=== PATIENT | female | born 1945 | race African-American/Black ===

== ENCOUNTER → 2022-03-25 | Day surgery (SDC) | payer OTHER ==
[2022-03-23 10:19] LABS: Basophils # (auto) 0 10 ^3/uL (0-0.2); Basophils % (auto) 0.8 % (0.0-2.0); Eosinophils # (auto) 0.2 10 ^3/uL (0-0.8); Eosinophils % (auto) 3.8 % (0.0-7.0); Hematocrit 41.3 % (36.0-46.0); Hemoglobin 13.6 g/dL (12.2-16.2); Lymphocytes # (auto) 1.9 10 ^3/uL (0.4-5.4); Lymphocytes % (auto) 30.8 % (10.0-50.0); Mean Corpuscular Hemoglobin 29.7 pg (28.0-32.0); Mean Corpuscular Volume 90.1 fL (80.0-100.0); Monocytes # (auto) 0.3 10 ^3/uL (0-1.3); Neutrophils # (auto) 3.7 10 ^3/uL (1.6-8.6); Neutrophils % (auto) 59.6 % (37.0-80.0); Nucleated Red Blood Cells % 0.2 %; Red Blood Cells 4.58 10^6/uL (4.0-5.20); Red Cell Distribution Width 13.4 % (11.8-14.3); White Blood Cell 6.2 10^3/uL (4.4-10.8)
[2022-03-23 10:42] LABS: INR 0.97 (0.9-1.15); Partial Thromboplastin Time 26.1 sec (24.6-33.4)
[2022-03-23 10:51] LABS: Calcium 9.2 mg/dL (8.5-10.1); Potassium 4.2 mmol/L (3.5-5.1)
[2022-03-23 10:54] LABS: BUN/Creatinine Ratio 11.5; Bilirubin, Total 0.3 mg/dL (0.2-1.0); Total Protein 7.6 g/dL (6.4-8.2)
[~2022-03-25] VITALS: Ht 154.9 cm; Wt 59.9 kg
[2022-03-25 16:40] VITALS: BP 147/76
== END | disposition home or self-care (01) ==
LOC: GI 13:42
PROVIDERS: ATTEND Internal Medicine Gastroenterology
DX: Z01.812 Encounter for preprocedural laboratory examination (principal); K21.9 Gastro-esophageal reflux disease without esophagitis; R10.13 Epigastric pain; K44.9 Diaphragmatic hernia without obstruction or gangrene; K29.50 Unspecified chronic gastritis without bleeding; Z20.822 Contact with and (suspected) exposure to COVID-19
CPT/HCPCS: 36415; 43239; 80053; 85025; 85610; 85730; U0003

== ENCOUNTER → 2022-04-10 | Day surgery (SDC) | payer OTHER ==
[2022-04-09 09:30] LABS: Basophils # (auto) 0.1 10 ^3/uL (0-0.2); Basophils % (auto) 0.9 % (0.0-2.0); Eosinophils # (auto) 0.2 10 ^3/uL (0-0.8); Eosinophils % (auto) 2.6 % (0.0-7.0); Hematocrit 41.5 % (36.0-46.0); Hemoglobin 14.3 g/dL (12.2-16.2); Lymphocytes % (auto) 27.3 % (10.0-50.0); Mean Corpuscular Hgb Conc. 34.5 g/dL (32.0-36.0); Mean Corpuscular Volume 89.8 fL (80.0-100.0); Monocytes # (auto) 0.3 10 ^3/uL (0-1.3); Monocytes % (auto) 4.3 % (0.0-12.0); Neutrophils # (auto) 4.8 10 ^3/uL (1.6-8.6); Neutrophils % (auto) 64.9 % (37.0-80.0); Red Blood Cells 4.63 10^6/uL (4.0-5.20); White Blood Cell 7.4 10^3/uL (4.4-10.8)
[2022-04-09 10:03] LABS: INR 0.97 (0.9-1.15); Partial Thromboplastin Time 27.1 sec (24.6-33.4)
[2022-04-09 10:29] LABS: Albumin 3.9 g/dL (3.4-5.0); Calcium 9.5 mg/dL (8.5-10.1); Potassium 4.1 mmol/L (3.5-5.1)
[2022-04-09 10:35] LABS: BUN/Creatinine Ratio 16.5; Bilirubin, Total 0.8 mg/dL (0.2-1.0); Total Protein 7.9 g/dL (6.4-8.2)
[~2022-04-10] VITALS: Ht 154.9 cm; Wt 59.0 kg
[~2022-04-10] MED LIST: FLUT110A IN; GABA300C10 PO; LOSA100T25 PO; METO25TA93 PO; MIDAZOLAM HCL 2MG/2ML 2ml VIAL (1mg/ml) ONE; OMEP20TA PO; POTA10TA51 PO; ROPI0.254 PO; SIMV-8 PO
[2022-04-10] MEDS: diphenhdrAMINE HCL 50 MG/1 ML VL ONE ×2 (18:22→18:24)
[2022-04-10] MEDS: MIDAZOLAM HCL 2MG/2ML 2ml VIAL (1mg/ml) ONE ×3 (18:22→18:29)
[2022-04-10] MEDS: fentaNYL CITRATE 100 MCG/2 ML VL ONE ×3 (18:22→18:29)
[2022-04-10 19:15] VITALS: BP 123/74
== END | disposition home or self-care (01) ==
LOC: GI 12:19
PROVIDERS: ATTEND Internal Medicine Gastroenterology
DX: R19.4 Change in bowel habit (principal); K57.30 Diverticulosis of large intestine without perforation or abscess without bleeding; K64.8 Other hemorrhoids; K63.89 Other specified diseases of intestine; I10 Essential (primary) hypertension; K21.9 Gastro-esophageal reflux disease without esophagitis; E78.5 Hyperlipidemia, unspecified; J45.909 Unspecified asthma, uncomplicated; M19.90 Unspecified osteoarthritis, unspecified site; I49.9 Cardiac arrhythmia, unspecified; Z88.6 Allergy status to analgesic agent; Z88.2 Allergy status to sulfonamides; Z88.8 Allergy status to other drugs, medicaments and biological substances; Z98.890 Other specified postprocedural states; Z79.899 Other long term (current) drug therapy; Z90.710 Acquired absence of both cervix and uterus; Z20.822 Contact with and (suspected) exposure to COVID-19
CPT/HCPCS: 36415; 45380; 80053; 85025; 85610; 85730; 88305; J1200; J2250; J3010; U0003

== ENCOUNTER → 2022-09-23 | Outpatient (CLI) | payer OTHER ==
[~2022-09-23] MED LIST changes: +GABA-1250 PO; -GABA300C10 PO; -MIDAZOLAM HCL 2MG/2ML 2ml VIAL (1mg/ml) ONE; -SIMV-8 PO; +SIMV20TA20 PO
[2022-09-23 08:34] LABS: Basophils # (auto) 0 10 ^3/uL (0-0.2); Basophils % (auto) 0.7 % (0.0-2.0); Eosinophils # (auto) 0.2 10 ^3/uL (0-0.8); Eosinophils % (auto) 2.6 % (0.0-7.0); Hematocrit 38.3 % (36.0-46.0); Hemoglobin 12.9 g/dL (12.2-16.2); Lymphocytes # (auto) 1.7 10 ^3/uL (0.4-5.4); Lymphocytes % (auto) 25.2 % (10.0-50.0); Mean Corpuscular Hemoglobin 30.7 pg (28.0-32.0); Mean Corpuscular Hgb Conc. 33.6 g/dL (32.0-36.0); Mean Corpuscular Volume 91.2 fL (80.0-100.0); Monocytes # (auto) 0.3 10 ^3/uL (0-1.3); Monocytes % (auto) 4.1 % (0.0-12.0); Neutrophils # (auto) 4.5 10 ^3/uL (1.6-8.6); Neutrophils % (auto) 67.4 % (37.0-80.0); Nucleated Red Blood Cells % 0.1 %; Red Cell Distribution Width 12.9 % (11.8-14.3); White Blood Cell 6.7 10^3/uL (4.4-10.8)
[2022-09-23 09:12] LABS: Urine Bacteria FEW /hpf (None Seen); Urine Blood 1+ /uL (Negative); Urine Budding Yeast MODERATE /hpf (None Seen); Urine Mucus FEW (None Seen); Urine Specific Gravity 1.019 (1.001-1.035); Urine WBC 452 /hpf (0 - 5); Urine WBC Clumps PRESENT /hpf (None Seen)
[2022-09-23 09:20] LABS: Albumin 3.5 g/dL (3.4-5.0); Calcium 9.3 mg/dL (8.5-10.1); Potassium 3.8 mmol/L (3.5-5.1)
[2022-09-23 09:26] LABS: BUN/Creatinine Ratio 20.2 (10.0-20.0); Bilirubin, Total 0.5 mg/dL (0.2-1.0); Total Protein 7.2 g/dL (6.4-8.2)
== END | disposition home or self-care (01) ==
LOC: LAB 08:13
PROVIDERS: ATTEND Internal Medicine
DX: I10 Essential (primary) hypertension (principal); E55.9 Vitamin D deficiency, unspecified
CPT/HCPCS: 36415; 80053; 80061; 81001; 84439; 84443; 85025; 85652; 86304

== ENCOUNTER → 2022-10-28 | Outpatient (CLI) | payer OTHER | END | disposition home or self-care (01) | LOC: LAB 11:39 | PROVIDERS: ATTEND Internal Medicine | DX: R30.0 Dysuria (principal) | CPT/HCPCS: 87086 ==

== ENCOUNTER 2023-01-13 07:58 | Emergency (ER) | payer OTHER ==
[~2023-01-13] VITALS: Ht 154.9 cm; Wt 56.7 kg
[~2023-01-13 07:58] MED LIST changes: +AZIT-43 PO; +BECL0.07 INH; +FLU05NSL; +LEVO500T91 PO; +LISI10TA34 PO; +METR500T PO; +ROPI0.5T16 PO; +SPIR25TA8 PO
[2023-01-13] MEDS ORDERED: ACETAMINOPHEN 325 MG TAB PO ONE (08:15)
[2023-01-13 08:30] VITALS: BP 168/91; PULSE 110
[2023-01-13] MEDS ORDERED: DexAMETHasone SOD PHOS 10MG/1ML VIAL INJ IM ONE (08:45)
[2023-01-13] MEDS ORDERED: IPRATROPIUM BROM 0.5 MG/2.5ML INH SOL NEB ONE (08:45)
[2023-01-13] MEDS ORDERED: ALBUTEROL MEDNEB 2.5 mg/3ml NEB NEB ONE (08:45)
[2023-01-13 08:59] VITALS: RESP 16; O2SAT 96
[2023-01-13 09:02] LABS: Rapid Influenza A Negative (Negative); Rapid Influenza B Negative (Negative)
[2023-01-13 09:16] VITALS: TEMP 99.2
[2023-01-13 09:16] LABS: COVID19 ANTIGEN SOFIA FIA POSITIVE (NEGATIVE)
[2023-01-13] MEDS ORDERED: BENZ100C97 PO (10:04)
[2023-01-13] MEDS ORDERED: ACET500T58 PO (10:04)
[2023-01-13] MEDS ORDERED: LORA10CA PO (10:04)
== END 2023-01-13 10:15 | disposition home or self-care (01) ==
LOC: ER 07:58
DX: U07.1 COVID-19 (principal); J45.909 Unspecified asthma, uncomplicated
CPT/HCPCS: 36415; 71045; 87426; 87804; 94640; 96372; 99284; J1100; J7644

== ENCOUNTER → 2023-03-30 | Outpatient (CLI) | payer OTHER ==
[~2023-03-30] MED LIST changes: +ACET500T58 PO; +BENZ100C97 PO; +LORA10CA PO
[2023-03-30 14:45] LABS: Urine Bacteria NONE SEEN /hpf (None Seen); Urine Blood 1+ /uL (Negative); Urine Clarity HAZY (Clear); Urine Color Straw (Yellow); Urine Protein, UAD Negative (Negative); Urine Urobilinogen Normal (Negative); Urine WBC 153 /hpf (0 - 5)
== END | disposition home or self-care (01) ==
LOC: LAB 14:27
PROVIDERS: ATTEND Obstetrics & Gynecology
DX: Z01.419 Encounter for gynecological examination (general) (routine) without abnormal findings (principal)
CPT/HCPCS: 81001; 87086

== ENCOUNTER → 2023-10-19 | Outpatient (CLI) | payer OTHER ==
[~2023-10-19] MED LIST changes: +POTA-36 PO; -POTA10TA51 PO; -ROPI0.254 PO; +ROPI5TAB20 PO
[2023-10-19 10:33] LABS: Basophils # (auto) 0.1 10 ^3/uL (0-0.2); Basophils % (auto) 0.9 % (0.0-2.0); Eosinophils # (auto) 0.2 10 ^3/uL (0-0.8); Eosinophils % (auto) 3.7 % (0.0-7.0); Hematocrit 40.3 % (36.0-46.0); Hemoglobin 13.5 g/dL (12.2-16.2); Lymphocytes # (auto) 1.8 10 ^3/uL (0.4-5.4); Lymphocytes % (auto) 27.4 % (10.0-50.0); Mean Corpuscular Hemoglobin 30.9 pg (28.0-32.0); Mean Corpuscular Hgb Conc. 33.6 g/dL (32.0-36.0); Monocytes # (auto) 0.4 10 ^3/uL (0-1.3); Monocytes % (auto) 5.5 % (0.0-12.0); Neutrophils # (auto) 4.1 10 ^3/uL (1.6-8.6); Neutrophils % (auto) 62.5 % (37.0-80.0); Nucleated Red Blood Cells % 0.1 %; Platelet Count (auto) 245 10^3/uL (140-450); Red Blood Cells 4.38 10^6/uL (4.0-5.20); Red Cell Distribution Width 12.9 % (11.8-14.3); White Blood Cell 6.5 10^3/uL (4.4-10.8)
[2023-10-19 11:13] LABS: Erythrocyte Sedimentation Rate 23 mm/hr (0-20)
[2023-10-19 11:19] LABS: Urine Bacteria FEW /hpf (None Seen); Urine Blood 1+ /uL (Negative); Urine Clarity Turbid (Clear); Urine Color Light-Yellow (Yellow); Urine Hyaline Cast FEW /lpf (0 - 2); Urine Protein, UAD Negative (Negative); Urine Specific Gravity 1.023 (1.001-1.035); Urine Urobilinogen Normal (Negative); Urine WBC 3 /hpf (0 - 5); Urine pH 5.5 (5.0-9.0)
[2023-10-19 11:32] LABS: Alanine Aminotransferase 23 U/L (7-40); Albumin 4.6 g/dL (3.2-4.8); Alkaline Phosphatase 79 U/L (46-116); Anion Gap 4 (5-15); Aspartate Aminotransferase 22 U/L (13-40); BUN/Creatinine Ratio 17.2 (10.0-20.0); Blood Urea Nitrogen 15 mg/dL (9-23); Calcium 10.5 mg/dL (8.7-10.4); Carbon Dioxide 29 mmol/L (20-30); Chloride 109 mmol/L (98-107); Glucose 89 mg/dL (74-106); LDL Cholesterol 78 mg/dL (< 100); Potassium 4.3 mmol/L (3.5-5.1); Sodium 142 mmol/L (136-145); Triglycerides 74 mg/dL (< 150)
[2023-10-19 11:33] LABS: Bilirubin, Total 0.7 mg/dL (0.2-1.0); Cholesterol 161 mg/dL (< 200); HDL Cholesterol 67 mg/dL (40-59); Total Protein 7.5 g/dL (5.7-8.2)
== END | disposition home or self-care (01) ==
LOC: LAB 10:12
PROVIDERS: ATTEND Internal Medicine
DX: I10 Essential (primary) hypertension (principal); N83.202 Unspecified ovarian cyst, left side
CPT/HCPCS: 36415; 80053; 80061; 81001; 84439; 84443; 85025; 85652

== ENCOUNTER → 2023-12-13 | Outpatient (CLI) | payer OTHER ==
[2023-12-13 10:12] LABS: Beta HCG, Quantitative 5.6 mIU/mL (1.5-4.2)
[2023-12-14 11:07] LABS: AFP Serum Tumor Marker 2.2 ng/mL (0.0-9.2); Cancer Antigen (CA) 125 12.3 U/mL (0.0-38.1)
== END | disposition home or self-care (01) ==
LOC: LAB 09:21
PROVIDERS: ATTEND Obstetrics & Gynecology
DX: Z01.419 Encounter for gynecological examination (general) (routine) without abnormal findings (principal); D27.1 Benign neoplasm of left ovary; R10.2 Pelvic and perineal pain; N83.02 Follicular cyst of left ovary
CPT/HCPCS: 36415; 82105; 82378; 82565; 83520; 83615; 84520; 84702; 86304; 86336

== ENCOUNTER → 2024-02-24 | Outpatient (CLI) | payer OTHER ==
[2024-02-24 10:14] LABS: Basophils # (auto) 0.1 10 ^3/uL (0-0.2); Basophils % (auto) 1.4 % (0.0-2.0); Eosinophils # (auto) 0.4 10 ^3/uL (0-0.8); Eosinophils % (auto) 6.1 % (0.0-7.0); Hematocrit 41.1 % (36.0-46.0); Hemoglobin 13.7 g/dL (12.2-16.2); Lymphocytes # (auto) 2.1 10 ^3/uL (0.4-5.4); Lymphocytes % (auto) 35.9 % (10.0-50.0); Mean Corpuscular Hemoglobin 30.6 pg (28.0-32.0); Mean Corpuscular Hgb Conc. 33.4 g/dL (32.0-36.0); Mean Corpuscular Volume 91.6 fL (80.0-100.0); Monocytes # (auto) 0.3 10 ^3/uL (0-1.3); Monocytes % (auto) 4.7 % (0.0-12.0); Neutrophils % (auto) 51.9 % (37.0-80.0); Platelet Count (auto) 236 10^3/uL (140-450); Red Blood Cells 4.48 10^6/uL (4.0-5.20); Red Cell Distribution Width 12.7 % (11.8-14.3); White Blood Cell 5.8 10^3/uL (4.4-10.8)
[2024-02-24 11:34] LABS: Alanine Aminotransferase 22 U/L (7-40); Albumin 4.5 g/dL (3.2-4.8); Alkaline Phosphatase 96 U/L (46-116); Anion Gap 7 (5-15); Aspartate Aminotransferase 21 U/L (13-40); BUN/Creatinine Ratio 15.5 (10.0-20.0); Bilirubin, Total 0.5 mg/dL (0.2-1.0); Blood Urea Nitrogen 15 mg/dL (9-23); Carbon Dioxide 27 mmol/L (20-31); Chloride 107 mmol/L (98-107); Glucose 89 mg/dL (74-106); Potassium 4.6 mmol/L (3.5-5.1); Sodium 141 mmol/L (136-145); Total Protein 6.9 g/dL (5.7-8.2)
[2024-02-24 11:37] LABS: Calcium 10.4 mg/dL (8.7-10.4)
== END | disposition home or self-care (01) ==
LOC: LAB 09:51
PROVIDERS: ATTEND Internal Medicine
DX: I10 Essential (primary) hypertension (principal); N83.209 Unspecified ovarian cyst, unspecified side
CPT/HCPCS: 36415; 80053; 83970; 85025; 86304

== ENCOUNTER → 2024-02-28 | Outpatient (CLI) | payer OTHER ==
[2024-02-28 12:09] LABS: Urine Bacteria None Seen /hpf (None Seen)
[2024-02-28 12:35] LABS: Basophils # (auto) 0.1 10 ^3/uL (0-0.2); Basophils % (auto) 0.8 % (0.0-2.0); Eosinophils # (auto) 0.2 10 ^3/uL (0-0.8); Eosinophils % (auto) 3.3 % (0.0-7.0); Hematocrit 41.9 % (36.0-46.0); Hemoglobin 13.9 g/dL (12.2-16.2); Lymphocytes # (auto) 2.1 10 ^3/uL (0.4-5.4); Lymphocytes % (auto) 30.1 % (10.0-50.0); Mean Corpuscular Hemoglobin 30.6 pg (28.0-32.0); Mean Corpuscular Hgb Conc. 33.2 g/dL (32.0-36.0); Mean Corpuscular Volume 92.3 fL (80.0-100.0); Monocytes # (auto) 0.2 10 ^3/uL (0-1.3); Monocytes % (auto) 3.2 % (0.0-12.0); Neutrophils # (auto) 4.4 10 ^3/uL (1.6-8.6); Neutrophils % (auto) 62.6 % (37.0-80.0); Platelet Count (auto) 255 10^3/uL (140-450); Red Blood Cells 4.54 10^6/uL (4.0-5.20); Red Cell Distribution Width 12.4 % (11.8-14.3); White Blood Cell 7.1 10^3/uL (4.4-10.8)
[2024-02-28 12:44] LABS: Urine Blood TRACE /uL (Negative); Urine Clarity Clear (Clear); Urine Color Light-Yellow (Yellow); Urine Protein, UAD Negative (Negative); Urine Specific Gravity 1.015 (1.001-1.035); Urine Squamous Epithelial Cell FEW /hpf (<5); Urine Urobilinogen Normal (Negative); Urine WBC <1 /hpf (0 - 5)
[2024-02-28 13:19] LABS: Erythrocyte Sedimentation Rate 20 mm/hr (0-20)
[2024-02-28 13:41] LABS: % Iron Saturation 24.1 % (15-50); Alanine Aminotransferase 17 U/L (7-40); Albumin 4.7 g/dL (3.2-4.8); Alkaline Phosphatase 96 U/L (46-116); Anion Gap 8 (5-15); Aspartate Aminotransferase 22 U/L (13-40); BUN/Creatinine Ratio 11.7 (10.0-20.0); Blood Urea Nitrogen 11 mg/dL (9-23); Carbon Dioxide 28 mmol/L (20-31); Chloride 105 mmol/L (98-107); Glucose 87 mg/dL (74-106); Potassium 4.3 mmol/L (3.5-5.1); Sodium 141 mmol/L (136-145)
[2024-02-28 13:42] LABS: Bilirubin, Total 0.6 mg/dL (0.2-1.0); Total Protein 7.7 g/dL (5.7-8.2)
[2024-02-28 13:43] LABS: Calcium 10.8 mg/dL (8.7-10.4)
[2024-02-28 13:46] LABS: Ferritin 37.6 ng/mL (10-291); Folate (Folic Acid) 9.25 ng/mL (>5.38)
[2024-02-28 13:47] LABS: Free T4 (Free Thyroxine) 1.01 ng/dL (0.89-1.76)
[2024-02-29 13:06] LABS: Albumin 3.9 g/dL (2.9-4.4); Alpha-1-Globulin 0.2 g/dL (0.0-0.4); Alpha-2-Globulin 0.7 g/dL (0.4-1.0); Gamma Globulin 1.2 g/dL (0.4-1.8); Globulin Total 3.3 g/dL (2.2-3.9); Protein Total Serum 7.2 g/dL (6.0-8.5)
== END | disposition home or self-care (01) ==
LOC: LAB 11:31
PROVIDERS: ATTEND Internal Medicine
DX: G62.9 Polyneuropathy, unspecified (principal); R10.2 Pelvic and perineal pain
CPT/HCPCS: 36415; 80053; 81001; 82607; 82728; 82746; 83036; 83540; 83550; 84155; 84165; 84439; 84443; 85025; 85652; 86141

== ENCOUNTER 2024-08-14 11:35 | Outpatient (CLI) | payer OTHER ==
[2024-08-14 12:01] LABS: Urine Bacteria None Seen /hpf (None Seen)
[2024-08-14 12:20] LABS: Urine Blood TRACE /uL (Negative); Urine Clarity Clear (Clear); Urine Color Light-Yellow (Yellow); Urine Protein, UAD Negative (Negative); Urine Specific Gravity 1.016 (1.001-1.035); Urine Squamous Epithelial Cell FEW /hpf (<5); Urine Urobilinogen Normal (Negative); Urine WBC 1 /HPF (0-5)
[2024-08-14 12:22] LABS: Basophils # (auto) 0 10 ^3/uL (0-0.2); Basophils % (auto) 0.7 % (0.0-2.0); Eosinophils # (auto) 0.3 10 ^3/uL (0-0.8); Eosinophils % (auto) 3.9 % (0.0-7.0); Hematocrit 40.2 % (36.0-46.0); Hemoglobin 13.5 g/dL (12.2-16.2); Lymphocytes # (auto) 2.1 10 ^3/uL (0.4-5.4); Lymphocytes % (auto) 31.7 % (10.0-50.0); Mean Corpuscular Hemoglobin 29.8 pg (28.0-32.0); Mean Corpuscular Hgb Conc. 33.4 g/dL (32.0-36.0); Mean Corpuscular Volume 89.3 fL (80.0-100.0); Monocytes # (auto) 0.3 10 ^3/uL (0-1.3); Monocytes % (auto) 4.1 % (0.0-12.0); Neutrophils % (auto) 59.6 % (37.0-80.0); Nucleated Red Blood Cells % 0.1 %; Platelet Count (auto) 236 10^3/uL (140-450); Red Blood Cells 4.51 10^6/uL (4.0-5.20); Red Cell Distribution Width 12.8 % (11.8-14.3); White Blood Cell 6.7 10^3/uL (4.4-10.8)
[2024-08-14 12:39] LABS: Alanine Aminotransferase 10 U/L (7-40); Albumin 4.4 g/dL (3.2-4.8); Alkaline Phosphatase 81 U/L (46-116); Anion Gap 9 (5-15); Aspartate Aminotransferase 23 U/L (<34); BUN/Creatinine Ratio 15.9 (10.0-20.0); Blood Urea Nitrogen 13 mg/dL (9-23); Carbon Dioxide 25 mmol/L (20-31); Cholesterol 156 mg/dL (< 200); Glucose 82 mg/dL (74-106); HDL Cholesterol 59 mg/dL (40-59); LDL Cholesterol 86 mg/dL (< 100); Potassium 3.8 mmol/L (3.5-5.1); Sodium 142 mmol/L (136-145); Total Protein 7.1 g/dL (5.7-8.2); Triglycerides 93 mg/dL (< 150)
[2024-08-14 12:40] LABS: Bilirubin, Total 0.6 mg/dL (0.2-1.0)
[2024-08-14 12:42] LABS: Calcium 10.5 mg/dL (8.7-10.4); Chloride 108 mmol/L (98-107)
[2024-08-14 12:49] LABS: Erythrocyte Sedimentation Rate 17 mm/hr (0-20)
== END 2024-08-14 17:00 | disposition home or self-care (01) ==
LOC: LAB 11:35
PROVIDERS: ATTEND Internal Medicine
DX: I10 Essential (primary) hypertension (principal); E83.52 Hypercalcemia
CPT/HCPCS: 36415; 80053; 80061; 81001; 83970; 84439; 84443; 85025; 85652

== ENCOUNTER → 2024-09-05 | Day surgery (SDC) | payer OTHER ==
[2024-08-30 10:54] LABS: Hematocrit 40.9 % (36.0-46.0); Hemoglobin 13.8 g/dL (12.2-16.2); Mean Corpuscular Hemoglobin 30.3 pg (28.0-32.0); Mean Corpuscular Volume 89.9 fL (80.0-100.0); Nucleated Red Blood Cells % 0.1 %
[2024-08-30 11:04] LABS: INR 0.99 (0.9-1.15); Partial Thromboplastin Time 26.1 SEC (24.5-34.5); Prothrombin Time 10.5 sec (9.3-11.8)
[2024-08-30 11:32] LABS: Alanine Aminotransferase 17 U/L (7-40); Albumin 4.5 g/dL (3.2-4.8); Alkaline Phosphatase 82 U/L (46-116); Anion Gap 8 (5-15); BUN/Creatinine Ratio 18.8 (10.0-20.0); Bilirubin, Total 0.5 mg/dL (0.2-1.0); Blood Urea Nitrogen 16 mg/dL (9-23); Carbon Dioxide 27 mmol/L (20-31); Glucose 84 mg/dL (74-106); Potassium 3.9 mmol/L (3.5-5.1); Sodium 144 mmol/L (136-145); Total Protein 7.0 g/dL (5.7-8.2)
[2024-08-30 11:35] LABS: Calcium 10.4 mg/dL (8.7-10.4); Chloride 109 mmol/L (98-107)
[2024-08-30 14:55] LABS: Urine Protein, UAD Negative (Negative)
[~2024-09-05] VITALS: Ht 154.9 cm; Wt 55.3 kg
[~2024-09-05] MED LIST changes: -ACET500T58 PO; +ACETAMINOPHEN IV 100 ML IV ONE; +ALBU108A5 IN; +ASPI81CH59 PO; +AZIT-185 PO; -AZIT-43 PO; -BECL0.07 INH; -BENZ100C97 PO; +CHOL1TAB28 PO; +DICL1GEL83 EX; +DICY10CA PO; +DIPH25TA83 PO; -FLUT110A IN; +HYDROmorphone HCL 2 MG/ML VL/or syr IV PRN; -LEVO500T91 PO; -LISI10TA34 PO; -LORA10CA PO; -METR500T PO; +ONDANSETRON HCL 4 MG/2 ML VIAL ONE; +PHENYLEPHRINE HCL 10 MG/ML VL ONE; +PROM1SOL4 PO; -ROPI0.5T16 PO; -SPIR25TA8 PO; +[UNRECOGNIZED DRUG - CODE] EX; +fentaNYL CITRATE 100 MCG/2 ML VL ONE
[2024-09-05] MEDS: ceFAZolin 2 GM/D5W50ml 50 ML IV ONE (06:55)
[2024-09-05] MEDS: BUPIVACAINE HCL 0.25% P/F 10 ML VIAL ONE (07:32)
[2024-09-05 08:07] VITALS: PULSE 71; RESP 99; TEMP 97.1; O2SAT 99
[2024-09-05] MEDS: ONDANSETRON HCL 4 MG/2 ML VIAL IV ONE (08:28)
[2024-09-05] MEDS: ACETAMINOPHEN IV 1000 MG/100ML (10MG/ML) IV PRN (08:44)
--- NOTE | 2024-09-05 09:10 | DVHOP2 ---
Operative Report - 2 Report Details Date: 09/05/24 Preop Diagnosis: Right carpal tunnel syndrome Postop Diagnosis: Right carpal tunnel syndrome Surgeon: Jhony Wills MD Anesthesiologist: Mike Gandhi physician marketing support assistant Anesthesia: General, Local Consent: The patient was informed of the risks and benefits of the procedure. These include but are not limited to complications of anesthesia, postoperative infection, incomplete relief of symptoms, recurrence of symptoms, damage to blood vessels, nerves and tendons, deep venous thrombosis, pulmonary embolism and possible need for repeat surgery in the future. Estimated Blood Loss: Less than 5 mL Indications for Surgery: The patient is a 78-year-old female who presented with clinical and neurological evidence of bilateral severe carpal tunnel syndrome. Nonoperative and operative management options were discussed. She had failed thorough nonoperative management and was having significant tingling and numbness with weakness and also dropping things. Surgery in the form of open carpal tunnel release was discussed with her. Benefits, risks and treatment alternatives were discussed. Specific complications of the surgery such as neurovascular injury, infection, arthrofibrosis, loss of limb or life were discussed. She decided to proceed with the surgical option. Name of Procedure Performed Right open carpal tunnel release Procedure Details Procedure Details: Local anesthesia was injected in the proposed site. An incision was made based on anatomical landmarks in line of third interdigital webspace. The skin and the subcutaneous tissue were dissected. The deep fascia was incised. Care was taken to stay on the ulnar side of the incision. The fat was dissected. The palmar fascia was identified and dissected. The transverse carpal ligament was now identified. No variants of median nerve branches such as the recurrent branch was noted. The dissection was completed proximally and distally to ensure safety of incising the retinaculum. A 15 blade was used to start the release. Next tenotomy scissors were used to dissect under the retinaculum. Median nerve was identified before the incision was carried out further. Next the tenotomy scissors were inserted right around the retinaculum with a Maud elevator inserted below it to release it distally as well as proximally. Excellent release was noted and confirmed with a hemostat that was inserted and spread both proximally and distally. The nerve was noted to be swollen and adherent to the radial portion of the retinaculum and was carefully released without any undue tension and dissection. The transverse carpal ligament was significantly thick and fibrosed. Irrigation was given and the incision was closed with 3-0 nylon The patient was taken to the recovery. The patient had normal sensation in the distal fingers. The patient was able to move her fingers as tolerated. The patient was comfortable and then discharged home. Condition Good Disposition Home JHONY WILLS MD Sep 05, 2024 09:10
[2024-09-05 09:20] VITALS: BP 146/70; PULSE 77; RESP 18; O2SAT 100
== END | disposition home or self-care (01) ==
LOC: SUR 06:14
PROVIDERS: ATTEND Orthopaedic Surgery Sports Medicine
DX: G56.01 Carpal tunnel syndrome, right upper limb (principal); I10 Essential (primary) hypertension; E78.5 Hyperlipidemia, unspecified; K21.9 Gastro-esophageal reflux disease without esophagitis; J45.909 Unspecified asthma, uncomplicated; G43.909 Migraine, unspecified, not intractable, without status migrainosus; Z98.890 Other specified postprocedural states; Z88.8 Allergy status to other drugs, medicaments and biological substances
CPT/HCPCS: 36415; 64721; 80053; 81001; 85025; 85610; 85730; J0690; J2371; J2405; J3010; J3490; J0131

== ENCOUNTER 2024-09-08 06:47 | Emergency (ER) | payer OTHER ==
[~2024-09-08] VITALS: Ht 154.9 cm; Wt 54.4 kg
[~2024-09-08 06:47] MED LIST changes: -ACETAMINOPHEN IV 100 ML IV ONE; -ALBU108A5 IN; -AZIT-185 PO; -HYDROmorphone HCL 2 MG/ML VL/or syr IV PRN; -ONDANSETRON HCL 4 MG/2 ML VIAL ONE; -PHENYLEPHRINE HCL 10 MG/ML VL ONE; -PROM1SOL4 PO; -fentaNYL CITRATE 100 MCG/2 ML VL ONE
--- NOTE | 2024-09-08 07:08 | ED.PDOC ---
SOB-HPI HPI Comments A 78 YEAR OLD FEMALE, WITH A PMHX OF ASTHMA, HTN, AND HIGH LIPIDS, PRESENTS TO THE ED WITH COMPLAINT OF COUGH OF X3 DAYS. PATIENT REPORTS SPONTANEOUS COUGH WITH ASSOCIATED SORE THROAT AND DIFFICULTY BREATHING. PT HAS HX OF ASTHMA BUT DOES NOT USE ALBUTEROL INHALER. PATIENT HAS NO FURTHER COMPLAINTS AT THIS TIME AND OTHERWISE DENIES FEVER, CHILLS, SHORTNESS OF BREATH, CHEST PAIN, ABDOMINAL PAIN, OR N/V. NO OTHER MODIFYING FACTORS AT THIS TIME. PATIENT IS ALERT, ORIENTED X 4, AND HAS STEADY GAIT. Chief Complaint: Flu like Time Seen by MD: 07:00 Primary Care Provider: SERA Lopez notes: Medications, Allergies Information Source: Patient Mode of Arrival: Ambulatory Severity: Mild, Moderate Timing: Days (3) Duration: Since onset Context: Spontaneous Onset PE Risk Factors: None History of: Asthma, Recent URI, Other (HTN, Chronic Headaches ) Prehospital treatment: None Modifying Factors: Nothing Associated Signs and Symptoms: Cough, Nasal Congestion, Sore Throat, Other (Headache and Difficulty Breathing ) Radiation: No Radiation If cough with SOB: Productive Past Medical History PAST MEDICAL HISTORY: Asthma, High Lipids, HTN Surgical History: Denies all surgeries CHAIRMAN OF THE BOARD History: No Pertinent CHAIRMAN OF THE BOARD History Family History Family History: Reviewed,noncontributory to illness, No family hx of Cancer, No family hx of DM, No family hx of Heart sania, No family hx of HTN, No family hx of Kidney sania, No family hx of Liver sania, No family hx of Lung sania, No family hx of Stroke Social History Smoker: Non-Smoker Alcohol: Denies ETOH Use Drugs: Denies Drug Use Lives In: Home Constitutional: denies: chills, diaphoresis, fatigue, fever, malaise, sweats, weakness, others EENTM: reports: nose congestion, throat pain, throat swelling; denies: blurred vision, double vision, ear bleeding, ear discharge, ear drainage, ear pain, ear ringing, eye pain, eye redness, hearing loss, mouth pain, mouth swelling, nasal discharge, nose bleeding, nose pain, photophobia, tearing, voice changes, others Respiratory: reports: cough, others (Difficulty Breathing ); denies: hemoptysis, orthopnea, SOB at rest, shortness of breath, SOB with excertion, stridor, wheezing Cardiovascular: denies: chest pain, dizzy spells, diaphoresis, Dyspnea on exertion, edema, irregular heart beat, left arm pain, lightheadedness, palpitations, PND, syncope, others Gastrointestinal: denies: abdomen distended, abdominal pain, blood streaked bowels, constipated, diarrhea, dysphagia, difficulty swallowing, hematemesis, melena, nausea, poor appetite, poor fluid intake, rectal bleeding, rectal pain, vomiting, others Genitourinary: denies: abnormal vagina bleeding, burning, dyspareunia, dysuria, flank pain, frequency, hematuria, incontinence, pain, , vagina discharge, urgency, others Neurological: reports: headache; denies: dizziness, fainting, left sided numbness, left sided weakness, numbness, paresthesia, pre-existing deficit, right sided numbness, right sided weakness, seizure, speech problems, tingling, tremors, weakness, others Musculoskeletal: denies: back pain, gout, joint pain, joint swelling, muscle pain, muscle stiffness, neck pain, others Integumetry: denies: bruises, change in color, change in hair/nails, dryness, laceration, lesions, lumps, rash, wounds, others Allergic/Immunocompromised: denies: Difficulty Healing, Frequent Infections, Hives, Itching, others Hematologic/Lymphatic: denies: anemia, blood clots, easy bleeding, easy bruising, swollen glands, others Endocrine: denies: excessive hunger, excessive sweating, excessive thirst, excessive urination, flushing, intolerance to cold, intolerance to heat, unexplained weight gain, unexplained weight loss, others Psychiatric: denies: anxiety, bipolar disorder, depression, hopeless, panic disorder, schizophrenia, sleepless, suicidal, others All Other Systems: Reviewed and Negative Physical Exam General Appearance: No Apparent Distress, Normal HEENT: PERRL/EOMI, Pharyngeal Erythema (MILD PHARYNX SWELLING, NO EXUDATES. ), TMs Normal Neck: Full Range of Motion, Non-Tender, Normal, Normal Inspection Respiratory: Chest Non-Tender, Decreased Breath Sounds, Expiration, No Accessory Muscle Use, No Respiratory Distress, Rhonchi Cardiovascular: No Edema, No JVD, No Murmur, No Gallop, Normal Peripheral Pulses, Regular Rate/Rhythm Breast Exam: Deferred Gastrointestinal: No Organomegaly, Non Tender, No Pulsatile Mass, Normal Bowel Sounds, Soft Genitalia: Deferred Pelvic: Deferred Rectal: Deferred Extremities: No calf tenderness, Normal capillary refill, Normal inspection, Normal range of motion, Non-tender, No pedal edema Musculoskeletal : Apperance: Normal Neurologic: Alert, cyber intelligence analyst II-XII nml as Tested, No Motor Deficits, Normal Affect, Normal Mood, No Sensory Deficits Cerebellar Function: Normal Reflexes: Normal Skin: Dry, Normal Color, Warm Peripheral Pulses: 2+ carotid (R), 2+ carotid (L) Lymphatic: No Adenopathy Was a procedure done? Was a procedure done?: No Differential Dx Differential Diagnosis: Anxiety, Asthma, Bronchitis, Hypertension, Panic Attack, Pneumonia, Respiratory Distress X-Ray, Labs, Meds, VS Vital Signs Date Time Temp Pulse Resp B/P (MAP) Pulse Ox O2 Delivery O2 Flow Rate FiO2 09/08/24 07:30 20 100 Room Air* 0 21 09/08/24 07:26 74 19 95 Room Air* 0 21 09/08/24 07:03 99.1 85 16 162/84 (110) 95 99.1 Lab Test 09/08/24 07:46 09/08/24 07:03 Range/Units SARS-CoV-2 Antigen (Rapid) Negative NEGATIVE Influenza Type A Antigen Negative Negative Influenza Type B Antigen Negative Negative Group A Streptococcus Rapid Negative Current Medications Medications (Trade) Dose Ordered Sig/Brenda Route Start Time Stop Time Status Last Admin Albuterol (Ventolin Medneb) 2.5 mg ONCE ONCE NEB 09/08/24 07:15 09/08/24 07:16 DC 09/08/24 07:29 Ipratropium Caney (Atrovent Medneb) 0.5 mg ONCE ONCE NEB 09/08/24 07:15 09/08/24 07:16 DC 09/08/24 07:29 Methylprednisolone Sodium Succinate (Solu Medrol) 125 mg ONCE ONCE IM 09/08/24 08:00 09/08/24 08:01 DC 09/08/24 08:35 XY CHEST TWO VIEWS ROUTINE CLINICAL HISTORY: Cough COMPARISON: None TECHNIQUE: Frontal and lateral view of the chest was obtained FINDINGS: Lines and Tubes: None Lungs: No focal consolidation. Pleura: No effusion. No pneumothorax. Cardiomediastinal contours: Unremarkable Bones: No acute osseous abnormality. IMPRESSION: 1. No acute cardiopulmonary disease. X-Ray, Labs, Meds, VS Comment EXTERNAL MEDICAL RECORDS REVIEWED: NONE INDEPENDENT HISTORIANS: NONE SOCIAL DETERMINANTS OF HEALTH: NONE LABS ORDERED: INFLUENZA A/B AND STREP CULTURAL REVIEWED AND INTERPRETED RESULTS: NEGATIVE IMAGING ORDERED: CHEST XRAY TREATMENTS ORDERED: NEBULIZER TREATMENT AND SOLUMEDROL 125MG IM PROCEDURES PERFORMED: NONE CRITICAL CARE TIME: NONE I HAVE DISCUSSED THE PATIENT WITH THE ATTENDING PHYSICIAN DR. JIMENEZ AND HE AGREES WITH THE PATIENT'S PLAN OF CARE AND DISPOSITION. BASED ON HISTORY OF PRESENT ILLNESS, AND PHYSICAL EXAM, PATIENT WILL BE DISCHARGED HOME. DISCUSSED PLAN FOR DISCHARGE HOME WITH RX: Z-PACK AND ALBUTEROL INHALER. MEDICATION WARNINGS GIVEN. SHARED DECISION MAKING: DISCUSSED WITH PATIENT THAT THEIR WORKUP WAS NORMAL. PATIENT INSTRUCTED TO FOLLOW UP WITH PRIMARY CARE PROVIDER IN 1-2 DAYS FOR RE- EVALUATION OF SYMPTOMS. PATIENT VERBALIZES UNDERSTANDING TO RETURN TO ED FOR NEW OR WORSENING SYMPTOMS OR IF FOLLOW UP WITH PCP CANNOT BE OBTAINED. PATIENT FEELS COMFORTABLE GOING HOME AT THIS TIME. ALL QUESTIONS ADDRESSED AT TIME OF DISCHARGE. Images Reviewed?: Images reviewed and evaluated by me Time of 1ST Reevaluation: 07:30 Reevaluation 1ST: Unchanged Time of 2ND Reevaluation: 09:11 Reevaluation 2ND: Improved Patient Education/Counseling: Diagnosis, Treatment, Need For Follow Up Family Education/Counseling: Diagnosis, Treatment, No Family Present Medical Screening: No EMC Exist At This Time SEPSIS Sepsis Screen Physician Orders Chest Two Views Routine (09/08/24 07:03) Vital Signs Date Time Temp Pulse Resp B/P (MAP) Pulse Ox O2 Delivery O2 Flow Rate FiO2 09/08/24 07:30 20 100 Room Air* 0 21 09/08/24 07:26 74 19 95 Room Air* 0 21 09/08/24 07:03 99.1 85 16 162/84 (110) 95 99.1 Medications Medications Dose Ordered Sig/Brenda Route Start Time Stop Time Status Last Admin Dose Admin Albuterol 2.5 mg ONCE ONCE NEB 09/08/24 07:15 09/08/24 07:16 DC 09/08/24 07:29 Ipratropium Caney 0.5 mg ONCE ONCE NEB 09/08/24 07:15 09/08/24 07:16 DC 09/08/24 07:29 Methylprednisolone Sodium Succinate 125 mg ONCE ONCE IM 09/08/24 08:00 09/08/24 08:01 DC 09/08/24 08:35 Departure 1 Departure Time of Disposition: 08:22 Impression: Primary Impression: Acute asthmatic bronchitis Additional Impression: Pharyngitis Qualified Codes: J02.9 - Acute pharyngitis, unspecified Disposition: HOME / SELF CARE / HOMELESS Condition: Stable Additional Instructions: FOLLOW-UP WITH PCP IN 1 TO 2 DAYS. TAKE MEDICATIONS PRESCRIBED. RETURN TO ED FOR ANY NEW OR WORSENING SYMPTOMS. e-Prescriptions Promethazine-Dm (Promethazine Dm 6.25-15 mg/5Ml) 1 Yadira Yadira 5 ML PO TID, #150 ML Prov: PAULINE OQUENDO 09/08/24 Albuterol Sulfate (Albuterol Sulfate Hfa) 108 Mcg/Act Aer 108 MCG IN TID, #120 AER Prov: PAULINE OQUENDO 09/08/24 Azithromycin (ZITHROMAX TABLET) 250 Mg Tb 250 MG PO DAILY, #6 TAB Prov: PAULINE OQUENDO 09/08/24 Discharged With: Self, Relative Critical Care Note Critical Care Time?: No Stability Stability form required: No Heart Score Heart Score: Heart Score Response (Comments) Value History N/A 0 EKG N/A 0 Age N/A 0 Risk Factors N/A 0 Troponin N/A 0 Total 0 I personally scribed for PAULINE OQUENDO ([email or web address]) on 09/08/24 at 07:08. Electronically submitted by Olivia Aden ([employer]). I personally scribed for PAULINE OQUENDO ([email or web address]) on 09/08/24 at 07:43. Electronically submitted by Olivia Aden ([employer]). I personally scribed for PAULINE OQUENDO ([email or web address]) on 09/08/24 at 08:22. Electronically submitted by Olivia Aden ([employer]). PAULINE OQUENDO Sep 08, 2024 07:08
[2024-09-08 07:26] VITALS: PULSE 74; RESP 19; O2SAT 95
[2024-09-08] MEDS: ALBUTEROL SULF 2.5 MG/0.5ML(0.5%) NEB SOLN NEB ONE (07:29)
[2024-09-08] MEDS: IPRATROPIUM BROM 0.5 MG/2.5ML INH SOL NEB ONE (07:29)
--- NOTE | 2024-09-08 07:38 | DVH ---
XY CHEST TWO VIEWS ROUTINE CLINICAL HISTORY: Cough COMPARISON: None TECHNIQUE: Frontal and lateral view of the chest was obtained FINDINGS: Lines and Tubes: None Lungs: No focal consolidation. Pleura: No effusion. No pneumothorax. Cardiomediastinal contours: Unremarkable Bones: No acute osseous abnormality. IMPRESSION: 1. No acute cardiopulmonary disease.
[2024-09-08 08:06] LABS: Rapid Strep A Screen-Throat Negative
[2024-09-08] MEDS: methylPREDNISolone SOD SUCC 125 MG/2 ML VL IM ONE (08:35)
[2024-09-08 08:57] LABS: COVID19 ANTIGEN SOFIA FIA NEGATIVE (NEGATIVE)
[2024-09-08] MEDS ORDERED: ALBU108A5 IN (09:09)
[2024-09-08] MEDS ORDERED: PROM1SOL4 PO (09:09)
[2024-09-08] MEDS ORDERED: AZIT-185 PO (09:09)
[2024-09-08 09:12] VITALS: BP 147/80; PULSE 93; RESP 18; TEMP 98.8; O2SAT 96
== END 2024-09-08 09:14 | disposition home or self-care (01) ==
LOC: ER 06:47
DX: J45.909 Unspecified asthma, uncomplicated (principal); I10 Essential (primary) hypertension; E78.5 Hyperlipidemia, unspecified; Z20.822 Contact with and (suspected) exposure to COVID-19
CPT/HCPCS: 36415; 71046; 87070; 87426; 87804; 87880; 94640; 96372; 99284; J2919

== ENCOUNTER 2024-09-13 13:46 | Inpatient (IN) | payer OTHER ==
[~2024-09-13] VITALS: Ht 154.9 cm; Wt 55.3 kg
[2024-09-13] VITALS (8 sets, daily range): BP systolic 152–166; BP diastolic 72–81; PULSE 22–74; RESP 18–20; TEMP 97.8; O2SAT 96–100
[~2024-09-13 13:46] MED LIST changes: +ALBU108A5 IN; +AZIT-185 PO; +PROM1SOL4 PO
--- NOTE | 2024-09-13 14:15 | ED.PDOC ---
SOB-HPI HPI Comments HPI: 78 y/o F, presents to the ED for CC of HTN. Patient states, she was sent by her PCP () for admission d/t asthma exacerbation, dehydration, and hypertension. Patient reports, that she recently had a procedure for carpal tunnel on(09/05/24) the and then began to experience shortness of breath on (09/08/24) for which she followed up with her PCP. Then at follow up appointment today (09/13/24) she was relayed to the ED for further care. Patient denies chest pain, cough, fever, chills, nasal congestion, weakness, or fatigue. No other associated symptoms or modifying factors present at this time. Past Medical history: ASTHMA, HTN, HLD, RESTLESS LEG SYNDROME, CHRONIC BACK PAIN, CHRONIC HEADACHES, NEUROPATHY Past Surgical history: TUBIAL LIGATION, HYSTERECTOMY, HEMORRHOID, SINUS X2, LEFT SHOULDER, RIGHT SHOULDER Medications: LOSARTAN, METOPROLOL, POTASSIUM CHLORIDE, SIMVASTATIN, OMEPRAZOLE, ROPINIROLE, GABAPENTIN, DICYCLOMINE,FLUTICASONE, VITAMIN D Social History: Denies smoking, ETOH, and drug use. Allergies: AMITRIPTYLINE, ASPIRIN, MELOXICAM, SULFAMETHOXAZOLE, VENLAFAXINE, EFFEXOR RESENDEZ: HPI: Poor Historian. REVIEW OF SYSTEMS: CONSTITUTIONAL: Denies acute: fever, diaphoresis, chills, HEAD: Denies acute: headache, photophobia Eyes: Denies acute: Double vision, vision loss, eye pain, eye discharge. EARS: Denies acute: tinnitus, hearing loss, ear discharge, ear pain, THROAT: Denies acute: sore throat, swelling, difficulty swallowing , pain with swallowing, change in voice. NECK: Denies acute: neck pain, neck swelling, stiff neck. HEART: Denies acute : chest pain, palpitations, LUNGS: Denies acute: wheezing, cough, hemoptysis ABDOMEN: Denies acute: abdominal pain, Nausea, Vomiting, diarrhea, melena , hematemesis, hematochezia SKIN: Denies acute: rash, redness, lesions, itchiness. EXTREMITIES: Denies acute: calf pain, numbness, tingling, weakness, denies pain in extremity. Denies acute: Low back pain. Neuro: Denies acute: focal neurological deficit, motor or sensory focal neurological deficit, tremors, seizure like activity, confusion, dizziness, change in mental status, loss of bowel or bladder function, cauda equina like symptoms. : Denies acute: dysuria, hematuria, flank pain, increase in urinary frequency. PSYCH: Denies acute: hallucination, suicidal ideation, homicidal ideation. FEMALE: Denies acute: abnormal vaginal bleeding, foul odor, unusual discharge. PHYSICAL EXAM: General: ----mild----acute distress, awake and alert. Head: normocephalic, atraumatic. Neck: supple, trachea is midline, no swelling. Throat: Normal phonation. Eyes:, no erythema, no purulent discharge, no proptosis, no icterus. Heart: regular rate, regular rhythm, no significant murmur appreciated. Lungs: no apparent respiratory distress, Able to speak in full sentences. No wheezing, no rhonchi, no crackles. No stridors Clear to auscultation bilaterally. Abdomen: non tender to palpation, non distended, soft, no guarding, no rebound, + bowel sounds. Neuro: Awake, Alert, oriented to name, self, situation, follows commands GCS=15. Speech is normal. Skin: no petechia, no purpura, no cyanosis, non-pale, not jaundice. Lower extremities: --no - Pitting edema no deformity, no focal swelling, no calf TTP. Makes eye contact. moves all four extremities. Face: no apparent facial droop. Ambulating in the ED independently. ED COURSE: DISCLAIMER: This medical document was created using an electronic medical record system with voice recognition software and computerized dictation system. Although this document has been carefully reviewed, there might still be some phonetic and typographical errors. Occasional wrong-word or "sound-alike" substitutions may have occurred due to the inherent limitations of voice recognition software. These areas are purely typographical due to imperfections of the software programs and do not reflect any compromise in the patient's medical care. Please read the chart carefully and recognize, using context, where these substitutions have occurred. Time Seen by MD: 14:00 Primary Care Provider: SERA Reviewed notes: Nurses Notes, Medications, Allergies Information Source: Patient Mode of Arrival: Ambulatory Severity: Moderate Timing: Days Duration: Since onset Context: At Rest PE Risk Factors: None History of: Asthma Prehospital treatment: None Modifying Factors: Nothing Was a procedure done? Was a procedure done?: No Differential Dx Differential Diagnosis: Asthma, Other (DDx include ACS, unstable angina, anxiety, PE, pneumothroax, neoplasm, cardiac ischemia, COPD, asthma, CHF, pleural effusion, tobacco abuse, pneumonia, hypoxia, hypercapnia, anemia., infection/sepsis., pulmonary edema. Asthma, Cardiac tamponade, infection.) X-Ray, Labs, Meds, VS Vital Signs Date Time Temp Pulse Resp B/P (MAP) Pulse Ox O2 Delivery O2 Flow Rate FiO2 09/13/24 18:28 96.9 82 18 164/89 (114) 95 96.9 09/13/24 16:41 98.1 77 16 145/76 (99) 96 98.1 09/13/24 15:00 22 19 98 Room Air* 0 21 09/13/24 14:56 91 18 95 Room Air 09/13/24 14:56 98.8 91 18 154/76 (102) 95 98.8 09/13/24 14:14 98.6 91 20 149/94 (112) 96 98.6 Lab Test 09/13/24 17:59 09/13/24 16:07 09/13/24 15:08 Range/Units Troponin I High Sensitivity 34 35 *H 30 </=34 ng/L White Blood Count 7.7 4.4-10.8 10^3/uL Red Blood Count 4.72 4.0-5.20 10^6/uL Hemoglobin 14.2 12.2-16.2 g/dL Hematocrit 41.9 36.0-46.0 % Mean Corpuscular Volume 88.8 80.0-100.0 fL Mean Corpuscular Hemoglobin 30.1 28.0-32.0 pg Mean Corpuscular Hemoglobin Concent 33.9 32.0-36.0 g/dL Red Cell Distribution Width 12.8 11.8-14.3 % Platelet Count 275 140-450 10^3/uL Mean Platelet Volume 6.5 L 6.9-10.8 fL Neutrophils (%) (Auto) 57.9 37.0-80.0 % Lymphocytes (%) (Auto) 34.8 10.0-50.0 % Monocytes (%) (Auto) 4.5 0.0-12.0 % Eosinophils (%) (Auto) 2.2 0.0-7.0 % Basophils (%) (Auto) 0.6 0.0-2.0 % Neutrophils # (Auto) 4.4 1.6-8.6 10 ^3/uL Lymphocytes # (Auto) 2.7 0.4-5.4 10 ^3/uL Monocytes # (Auto) 0.3 0-1.3 10 ^3/uL Eosinophils # (Auto) 0.2 0-0.8 10 ^3/uL Basophils # (Auto) 0 0-0.2 10 ^3/uL Nucleated Red Blood Cells 0.0 % D-Dimer, Quantitative 1.87 H 0.0-0.49 mg/L FEU Sodium Level 143 136-145 mmol/L Potassium Level 3.6 3.5-5.1 mmol/L Chloride Level 104 98-107 mmol/L Carbon Dioxide Level 30 20-31 mmol/L Anion Gap 9 5-15 Blood Urea Nitrogen 11 9-23 mg/dL Creatinine 0.96 0.550-1.02 mg/dL Glomerular Filtration Rate Calc 60 >90 mL/min BUN/Creatinine Ratio 11.5 10.0-20.0 Serum Glucose 123 H 74-106 mg/dL Lactic Acid Level 1.3 0.4-2.0 mmol/L Calcium Level 9.8 8.7-10.4 mg/dL Total Bilirubin 0.7 0.2-1.0 mg/dL Aspartate Amino Transferase (AST) 41 H 13-40 U/L Alanine Aminotransferase (ALT) 40 7-40 U/L Alkaline Phosphatase 89 46-116 U/L B-Type Natriuretic Peptide 141.79 0-100 pg/mL Total Protein 7.1 5.7-8.2 g/dL Albumin 4.7 3.2-4.8 g/dL [address] [address] Ph: [phone] DIAGNOSTIC IMAGING Diagnostic Imaging Report : [id number] Signed PATIENT: TIM RESENDEZ ACCT: [id number] UNIT: [id number] : 1945 LOC: ER ROOM / BED: / AGE / SEX: 78 / F ADM STATUS: REG ER SERVICE 1403 ORDERING PHYSICIAN: ANSON CORNELL DO PROCEDURE(s): CXRP - CHEST PORTABLE REASON: sob ORDER NUMBER(s): [id number], ACCESSION NUMBER(s): [id number] EXAM: XY CHEST PORTABLE Indication: sob Technique: Single frontal view of the chest was obtained Comparison: XY CHEST XRAY 1 VIEW on DOS: 01/13/23 FINDINGS: Lines and Tubes: None Lungs: No focal consolidation. Pleura: No effusion. No pneumothorax. Cardiomediastinal contours: Unremarkable Bones: No acute osseous abnormality. IMPRESSION: No acute cardiopulmonary disease. ATED BY: ROGER MALIK MD DICTATED DATE/TIME: 09/13/241427 SIGNED BY: ROGER MALIK MD SIGNED DATE/TIME: 09/13/241427 CC: [place] [address] Ph: [phone] DIAGNOSTIC IMAGING Diagnostic Imaging Report : [id number] Signed PATIENT: TIM RESENDEZ ACCT: [id number] UNIT: [id number] : 1945 LOC: ER ROOM / BED: / AGE / SEX: 78 / F ADM STATUS: REG ER SERVICE 1643 ORDERING PHYSICIAN: ANSON CORNELL DO PROCEDURE(s): CTACH - CT ANGIO CHEST CONTRAST REASON: sob ORDER NUMBER(s): [id number], ACCESSION NUMBER(s): [id number] Indication: sob Technique: CT axial images of the chest are obtained with intravenous contrast per CT angiogram protocol. Coronal and sagittal reformats were obtained. Radiation Dose Information: CTDI volume is 20.72 mGy. Dose-length product is 247.87 mGy*cm Comparison: None FINDINGS: There is no filling defect within the main left and right pulmonary arteries. The segmental and subsegmental branches are suboptimally opacified/characterize. The trachea is patent. There is no pneumothorax. No pulmonary airspace consolidation. Bilateral atelectasis, [id number]. 3 mm right upper lobe solid nodule. 4 mm right lower lobe ground-glass nodule. 3 mm left upper lobe calcified nodule. 2 mm right upper lobe calcified nodule. The heart is normal in size. Coronary artery calcification disease. Aortic atherosclerotic disease No supraclavicular, axillary lymphadenopathy. No aggressive osseous process. Patulous/distended esophagus. [id number] thoracic degenerative disc disease. IMPRESSION: No evidence for large pulmonary embolism. The segmental and subsegmental branches are suboptimally characterized. Patulous/distended esophagus Pulmonary nodules up to 4 mm. Recommend follow-up per Fleischner society criteria. There are also calcified pulmonary nodules consistent with sequela of remote granulomatous disease. Coronary artery calcification disease. Other findings as described. ATED BY: LUCA SANABRIA MD DICTATED DATE/TIME: 09/13/241745 SIGNED BY: LUCA SANABRIA MD SIGNED DATE/TIME: 09/13/241745 CC: Time of 1ST Reevaluation: 14:30 Reevaluation 1ST: Unchanged Patient Education/Counseling: Diagnosis, Treatment Family Education/Counseling: No Family Present Comments MDM: patient presented with the above HPI.---dyspnea---workup was initiated. patient was found with the above mentioned diagnosis. the following medications were ordered: please refer to order lists of meds and tests obtained by myself Dr. Cornell. Patient ED course and VS have been stabilized. Patient has been reassessed in the ED and remained in a stable condition. Pertinent incidental findings were discussed with the patient and/or family. Patient/family voices understanding and is agreeable with plan. Patient has been observed in the ED adequate length of time to insure improvement/stability. Escalation of care considered: Consideration of escalation to observation or admission Patient was given DuoNeb treatment, Solu-Medrol, aspirin Patient was ADMITTED to the medicine team for further evaluation and treatment of their presentation. All the reports of any imaging studies that were ordered by myself were reviewed by myself. Departure 1 Departure Time of Disposition: 14:34 Impression: Primary Impression: Dyspnea Additional Impressions: Hypertension Elevated troponin Elevated d-dimer Pulmonary nodule Disposition: ADMITTED INPATIENT Condition: Guarded e-Prescriptions Azithromycin (Azithromycin) 250 Mg Tab 250 MG PO DAILY MDD 500 for 5 Days, #6 TAB 0 Refills 2 TABLETS ORALLY ON DAY ONE, THEN 1 TABLET ORALLY DAILY FOR 4 DAYS Prov: COLBY MORALES DO 09/15/24 Pantoprazole Sodium Sesquihydr (Pantoprazole Sodium) 40 Mg Tab 40 MG PO DAILY for 30 Days, #30 TAB 3 Refills Prov: COLBY MORALES DO 09/15/24 Discharged With: Self Critical Care Note Critical Care Time?: Yes (35 min-critical care time only) Heart Score Heart Score: Heart Score Response (Comments) Value History N/A 0 EKG N/A 0 Age N/A 0 Risk Factors N/A 0 Troponin N/A 0 Total 0 I personally scribed for ANSON CORNELL DO ([email or web address]) on 09/13/24 at 14:15. Electronically submitted by Carol Landa ([email or web address]). I personally scribed for ANSON CORNELL DO ([email or web address]) on 09/13/24 at 14:22. Electronically submitted by Carol Landa ([email or web address]). I personally scribed for ANSON CORNELL DO ([email or web address]) on 09/13/24 at 14:31. Electronically submitted by Carol Landa ([email or web address]). I personally scribed for ANSON CORNELL DO ([email or web address]) on 09/13/24 at 14:58. Electronically submitted by Carol Landa ([email or web address]). I personally scribed for ANSON CORNELL DO ([email or web address]) on 09/13/24 at 18:58. Electronically submitted by Carol Landa ([email or web address]). ANSON CORNELL DO Sep 13, 2024 14:15
--- NOTE | 2024-09-13 14:30 | DVH ---
EXAM: XY CHEST PORTABLE Indication: sob Technique: Single frontal view of the chest was obtained Comparison: XY CHEST XRAY 1 VIEW on DOS: 01/13/23 FINDINGS: Lines and Tubes: None Lungs: No focal consolidation. Pleura: No effusion. No pneumothorax. Cardiomediastinal contours: Unremarkable Bones: No acute osseous abnormality. IMPRESSION: No acute cardiopulmonary disease.
[2024-09-13] MEDS: methylPREDNISolone SOD SUCC 125 MG/2 ML VL IV ONE (14:56)
[2024-09-13] MEDS: IPRATROPIUM BROM 0.5 MG/2.5ML INH SOL NEB ONE (15:23)
[2024-09-13] MEDS: ALBUTEROL SULF 2.5 MG/0.5ML(0.5%) NEB SOLN NEB ONE (15:23)
[2024-09-13 15:28] LABS: Hematocrit 41.9 % (36.0-46.0); Hemoglobin 14.2 g/dL (12.2-16.2); Mean Corpuscular Hemoglobin 30.1 pg (28.0-32.0); Mean Corpuscular Volume 88.8 fL (80.0-100.0); Nucleated Red Blood Cells % 0.0 %
[2024-09-13 15:48] LABS: Albumin 4.7 g/dL (3.2-4.8); Alkaline Phosphatase 89 U/L (46-116); Anion Gap 9 (5-15); BUN/Creatinine Ratio 11.5 (10.0-20.0); Blood Urea Nitrogen 11 mg/dL (9-23); Calcium 9.8 mg/dL (8.7-10.4); Carbon Dioxide 30 mmol/L (20-31); Chloride 104 mmol/L (98-107); Potassium 3.6 mmol/L (3.5-5.1); Sodium 143 mmol/L (136-145); Total Protein 7.1 g/dL (5.7-8.2)
[2024-09-13 15:49] LABS: Bilirubin, Total 0.7 mg/dL (0.2-1.0)
[2024-09-13 15:50] LABS: Alanine Aminotransferase 40 U/L (7-40); Glucose 123 mg/dL (74-106)
[2024-09-13] MEDS ORDERED: ASPirin-EC 325mg tab PO NR (16:45)
[2024-09-13] MEDS: IOHEXOL 350 MG/ML 100ML IJ ONE (17:25)
--- NOTE | 2024-09-13 17:47 | DVH ---
Indication: sob Technique: CT axial images of the chest are obtained with intravenous contrast per CT angiogram prot ocol. Coronal and sagittal reformats were obtained. Radiation Dose Information: CTDI volume is 20.72 mGy. Dose-length product is 247.87 mGy*cm Comparison: None FINDINGS: There is no filling defect within the main left and right pulmonary arteries. The segmental and subs egmental branches are suboptimally opacified/characterize. The trachea is patent. There is no pneumothorax. No pulmonary airspace consolidation. Bilateral atel ectasis, [id number]-gvdc-right. 3 mm right upper lobe solid nodule. 4 mm right lower lobe ground-gl ass nodule. 3 mm left upper lobe calcified nodule. 2 mm right upper lobe calcified nodule. The heart is normal in size. Coronary artery calcification disease. Aortic atherosclerotic disease No supraclavicular, axillary lymphadenopathy. No aggressive osseous process. Patulous/distended esophagus. Labv-rz-iricmkbt thoracic degenerative disc disease. IMPRESSION: No evidence for large pulmonary embolism. The segmental and subsegmental branches are suboptimally c haracterized. Patulous/distended esophagus Pulmonary nodules up to 4 mm. Recommend follow-up per Fleischner society criteria. There are also calcified pulmonary nodules consistent with sequela of remote granulomatous disease. Coronary artery calcification disease. Other findings as described.
[2024-09-13] MEDS ORDERED: FLUTICASONE PROP NASAL SPR 0.05 % (50MCG) 16GM PRN (19:15)
[2024-09-13] MEDS ORDERED: GABAPENTIN 300 MG CAP PO PRN (19:15)
--- NOTE | 2024-09-13 19:21 | DVHHP2 ---
History of Present Illness 78 y/o F, presents to the ED for CC of HTN. Patient states, she was sent by her PCP () for admission d/t asthma exacerbation, dehydration, and hypertension. Patient reports, that she recently had a procedure for carpal tunnel on(09/05/24) the and then began to experience shortness of breath on (09/08/24) for which she followed up with her PCP. Then at follow up appointment today (09/13/24) she was relayed to the ED for further care. Patient denies chest pain, cough, fever, chills, nasal congestion, weakness, or fatigue. No other associated symptoms or modifying factors present at this time. Past Medical history: ASTHMA, HTN, HLD, RESTLESS LEG SYNDROME, CHRONIC BACK PAIN, CHRONIC HEADACHES, NEUROPATHY Past Surgical history: TUBIAL LIGATION, HYSTERECTOMY, HEMORRHOID, SINUS X2, LEFT SHOULDER, RIGHT SHOULDER Medications: LOSARTAN, METOPROLOL, POTASSIUM CHLORIDE, SIMVASTATIN, OMEPRAZOLE, ROPINIROLE, GABAPENTIN, DICYCLOMINE,FLUTICASONE, VITAMIN D Social History: Denies smoking, ETOH, and drug use. Allergies: AMITRIPTYLINE, ASPIRIN, MELOXICAM, SULFAMETHOXAZOLE, VENLAFAXINE, EF FEXOR REVIEW OF SYSTEMS: CONSTITUTIONAL: Denies acute: fever, diaphoresis, chills, HEAD:Denies acute: headache, photophobia Eyes:Denies acute: Double vision, vision loss, eye pain, eye discharge. EARS:Denies acute: tinnitus, hearing loss, ear discharge, ear pain, THROAT:Denies acute: sore throat, swelling, difficulty swallowing , pain with swallowing, change in voice. NECK:Denies acute: neck pain, neck swelling, stiff neck. HEART:Denies acute : chest pain, palpitations, LUNGS:Denies acute: wheezing, cough, hemoptysis ABDOMEN: Denies acute: abdominal pain, Nausea, Vomiting, diarrhea, melena , hematemesis, hematochezia SKIN:Denies acute: rash, redness, lesions, itchiness. EXTREMITIES:Denies acute: calf pain, numbness, tingling, weakness, denies pain in extremity. Denies acute: Low back pain. Neuro:Denies acute: focal neurological deficit, motor or sensory focal ne urological deficit, tremors, seizure like activity, confusion, dizziness, change in mental status, loss of bowel or bladder function, cauda equina like symptoms. : Denies acute: dysuria, hematuria, flank pain, increase in urinary frequency. Allergies: Coded Allergies: Amitriptyline (Unverified Allergy, Unknown, 01/16/15) Aspirin (Unverified Allergy, Unknown, 01/16/15) Meloxicam (Unverified Allergy, Unknown, 01/16/15) Sulfamethoxazole w/Trimethoprim (Unverified Allergy, Unknown, 01/16/15) Venlafaxine (Unverified Allergy, Unknown, 01/16/15) Home Meds Active Scripts Promethazine-Dm (Promethazine Dm 6.25-15 mg/5Ml) 1 Yadira Yadira, 5 ML PO TID, #150 ML Prov:PAULINE OQUENDO 09/08/24 Albuterol Sulfate (Albuterol Sulfate Hfa) 108 Mcg/Act Aer, 108 MCG IN TID, #120 AER Prov:PAULINE OQUENDO 09/08/24 Azithromycin (ZITHROMAX TABLET) 250 Mg Tb, 250 MG PO DAILY, #6 TAB Prov:PAULINE OQUENDO 09/08/24 Reported Medications Diphenhydramine Hcl (Unisom Sleepmelts) 25 Mg Tab, 25 MG PO HSPRN, TAB 08/31/24 Cholecalciferol (D3 2000) 2,000 Unit Tab, 2000 UNIT PO DAILY, TAB 08/31/24 Aspirin (Aspirin Low Dose) 81 Mg Chw, 81 MG PO DAILY, TAB.CHEW 08/31/24 Lidocaine-Transparent Dressing (Lidocaine) 4 % Kit, 4 % EX, KIT 08/31/24 Diclofenac Sodium (Topical) (Aspercreme Arthritis Pain) 1 % Gel, 1 % EX, GEL 08/31/24 Dicyclomine Hcl (BENTYL CAPSULE) 10 Mg Cp, 2 TAB PO QHSP, CAP 08/31/24 Gabapentin (Gabapentin) 300 Mg Cap, 300 MG PO QPM PRN for qpm, CAP 04/09/22 Ropinirole Hydrochloride (Ropinirole Hcl) 0.25 Mg Tab, 0.25 MG PO QPM, #2 TAB 04/09/22 Potassium Chloride (POTASSIUM CHLORIDE CR) 10 Meq Tb, 10 MEQ PO DAILY, TAB 04/09/22 Omeprazole (Gnp Omeprazole) 20 Mg Tab, 20 MG PO BID, TAB 04/09/22 Losartan Potassium & Hydrochlo (Hyzaar) 1 Tab Tab, 1 TAB PO DAILY, TAB 04/09/22 Fluticasone Propionate (FLONASE SPRAY) 50 Mcg Sp, 2 SPRAY NA DAILY PRN for prn, #16 GRAMS 01/16/15 Simvastatin (Simvastatin) 20 Mg Tab, 20 MG PO DAILY for 30 Days 01/16/15 Metoprolol Succinate (Metoprolol Succinate Er) 25 Mg Tab, 25 MG PO HS for 30 Days, MG 01/16/15 Current Medications Current Medications Medications (Trade) Dose Ordered Sig/Brenda Route PRN Reason Start Time Stop Time Status Last Admin Aspirin (Ecotrin Enteric Coated Tablet) 325 mg ONCE PO 09/13/24 16:45 09/14/24 23:59 Hold Albuterol (Ventolin Hfa) 108 mcg TID IN 09/13/24 22:00 UNV Dicyclomine HCl (Bentyl Capsule) 20 mg QHSP PO 09/13/24 22:00 UNV Fluticasone Propionate (Flonase [place]) 50 mcg DAILY PRN NA prn 09/13/24 19:15 UNV Gabapentin (Neurontin Capsule) 300 mg QPM PRN PO qpm 09/13/24 19:15 UNV Patient Own Medication 81 mg DAILY PO 09/14/24 10:00 UNV Patient Own Medication 2,000 unit DAILY PO 09/14/24 10:00 UNV Patient Own Medication 1 tab DAILY PO 09/14/24 10:00 UNV Patient Own Medication 25 mg HS PO 09/13/24 22:00 UNV Patient Own Medication 20 mg BID PO 09/13/24 22:00 UNV Patient Own Medication 0.25 mg QPM PO 09/14/24 18:00 UNV Patient Own Medication 20 mg DAILY PO 09/14/24 10:00 UNV Vital Signs Vital Signs Date Time Temp Pulse Resp B/P (MAP) Pulse Ox O2 Delivery O2 Flow Rate FiO2 09/13/24 18:28 96.9 82 18 164/89 (114) 95 96.9 09/13/24 15:00 Room Air* 0 21 Physical Exam gen - 78 y.o. man, wn, wd, nad. heent - at/nc Heart: RRR Lung: Cta b/l Abd; soft, non-tender, non-distended Msk: no edema, no cyanosis Neuro: Aox3, no focal deficit SEPSIS Sepsis Screen Date sepsis recognized/suspect: Sep 13, 2024 Time Sepsis recognized/suspect: 1414 Recent Procedure: No On Antibiotic Therapy: No Respiratory Rate >20: No Heart Rate >90: No Temp<36 C (96.8 F) or >38.3 C: No SBP <90 or MAP <65 mmHG: No New Acute Mental Status Change: No Is the patient on CPAP, BIPAP,: No Physician Orders Test Engineer (09/13/24 ) Urinalysis (09/13/24 14:03) Chest Portable (09/13/24 14:03) Electrocardigram (09/13/24 14:03) Ct Angio Chest Contrast (09/13/24 16:43) Aspirin Enteric Coated Tablet (Ecotrin E (09/13/24 16:45) Cardiac Diet-2gna,Lofat,Lochol (09/13/24 Dinner) Echo 2d Mode Cardiac Dop (09/13/24 19:09) Comprehensive Metabolic Panel (09/14/24 05:00) Comprehensive Metabolic Panel (09/15/24 05:00) Comprehensive Metabolic Panel (09/16/24 05:00) Comprehensive Metabolic Panel (09/17/24 05:00) Comprehensive Metabolic Panel (09/18/24 05:00) Complete Blood Count (09/14/24 05:00) Complete Blood Count (09/15/24 05:00) Complete Blood Count (09/16/24 05:00) Complete Blood Count (09/17/24 05:00) Complete Blood Count (09/18/24 05:00) Albuterol Inhaler (Ventolin Hfa) (09/13/24 22:00) Dicyclomine Capsule (Bentyl Capsule) (09/13/24 22:00) Fluticasone Nasal [place] (Flonase [place]) (09/13/24 19:15) Gabapentin Capsule (Neurontin Capsule) (09/13/24 19:15) (Nf) Aspirin (Aspirin Low Dose) (09/14/24 10:00) (Nf) Cholecalciferol (D3 2000) (09/14/24 10:00) (Nf) Losartan Potassium & Hydrochlo (Hyz (09/14/24 10:00) (Nf) Metoprolol Succinate (Metoprolol [place] (09/13/24 22:00) (Nf) Omeprazole (Gnp Omeprazole) (09/13/24 22:00) (Nf) Ropinirole Hydrochloride (Ropinirol (09/14/24 18:00) (Nf) Simvastatin (09/14/24 10:00) Urinalysis (09/13/24 19:14) Vital Signs Date Time Temp Pulse Resp B/P (MAP) Pulse Ox O2 Delivery O2 Flow Rate FiO2 09/13/24 18:28 96.9 82 18 164/89 (114) 95 96.9 09/13/24 16:41 98.1 77 16 145/76 (99) 96 98.1 09/13/24 15:00 22 19 98 Room Air* 0 21 09/13/24 14:56 91 18 95 Room Air 09/13/24 14:56 98.8 91 18 154/76 (102) 95 98.8 09/13/24 14:14 98.6 91 20 149/94 (112) 96 98.6 Laboratory Tests Test 09/13/24 15:08 Lactic Acid Level 1.3 mmol/L (0.4-2.0) White Blood Count 7.7 10^3/uL (4.4-10.8) Medications Medications Dose Ordered Sig/Brenda Route Start Time Stop Time Status Last Admin Dose Admin Albuterol 2.5 mg ONCE ONCE NEB 09/13/24 14:15 09/13/24 14:16 DC 09/13/24 15:23 Ipratropium [place] 1 mg ONCE ONCE NEB 09/13/24 14:15 09/13/24 14:16 DC 09/13/24 15:23 Methylprednisolone Sodium Succinate 125 mg ONCE ONCE IV 09/13/24 14:15 09/13/24 14:16 DC 09/13/24 14:56 Results Labs Test 09/13/24 17:59 09/13/24 15:08 Range/Units Troponin I High Sensitivity 34 </=34 ng/L White Blood Count 7.7 4.4-10.8 10^3/uL Red Blood Count 4.72 4.0-5.20 10^6/uL Hemoglobin 14.2 12.2-16.2 g/dL Hematocrit 41.9 36.0-46.0 % Mean Corpuscular Volume 88.8 80.0-100.0 fL Mean Corpuscular Hemoglobin 30.1 28.0-32.0 pg Mean Corpuscular Hemoglobin Concent 33.9 32.0-36.0 g/dL Red Cell Distribution Width 12.8 11.8-14.3 % Platelet Count 275 140-450 10^3/uL Mean Platelet Volume 6.5 L 6.9-10.8 fL Neutrophils (%) (Auto) 57.9 37.0-80.0 % Lymphocytes (%) (Auto) 34.8 10.0-50.0 % Monocytes (%) (Auto) 4.5 0.0-12.0 % Eosinophils (%) (Auto) 2.2 0.0-7.0 % Basophils (%) (Auto) 0.6 0.0-2.0 % Neutrophils # (Auto) 4.4 1.6-8.6 10 ^3/uL Lymphocytes # (Auto) 2.7 0.4-5.4 10 ^3/uL Monocytes # (Auto) 0.3 0-1.3 10 ^3/uL Eosinophils # (Auto) 0.2 0-0.8 10 ^3/uL Basophils # (Auto) 0 0-0.2 10 ^3/uL Nucleated Red Blood Cells 0.0 % D-Dimer, Quantitative 1.87 H 0.0-0.49 mg/L FEU Sodium Level 143 136-145 mmol/L Potassium Level 3.6 3.5-5.1 mmol/L Chloride Level 104 98-107 mmol/L Carbon Dioxide Level 30 20-31 mmol/L Anion Gap 9 5-15 Blood Urea Nitrogen 11 9-23 mg/dL Creatinine 0.96 0.550-1.02 mg/dL Glomerular Filtration Rate Calc 60 >90 mL/min BUN/Creatinine Ratio 11.5 10.0-20.0 Serum Glucose 123 H 74-106 mg/dL Lactic Acid Level 1.3 0.4-2.0 mmol/L Calcium Level 9.8 8.7-10.4 mg/dL Total Bilirubin 0.7 0.2-1.0 mg/dL Aspartate Amino Transferase (AST) 41 H 13-40 U/L Alanine Aminotransferase (ALT) 40 7-40 U/L Alkaline Phosphatase 89 46-116 U/L B-Type Natriuretic Peptide 141.79 0-100 pg/mL Total Protein 7.1 5.7-8.2 g/dL Albumin 4.7 3.2-4.8 g/dL Primary Diagnosis chest pain elevated trop r/o acs elevated d-dimer, acute pulmonary embolism ruled out Plan chest pain 1st trop neg, 2nd trop mild elevated, 3rd trop CTA chest ruled out pulmonary embolism check EKG Check Echo resume home meds cardiac diet ivf Full code lovenox no gi ppx Plan discussed with: Patient Problems List: (1) Elevated troponin Status: Acute (2) Elevated d-dimer Status: Acute (3) Hypertension Status: Acute (4) Pulmonary nodule Status: Acute (5) Dyspnea Status: Acute Date of Service: Sep 13, 2024 Billing Provider: JENY ROTHMAN MD Common Visit Codes: [id number] INP/OBS CARE (MOD) JENY ROTHMAN MD Sep 13, 2024 19:21
[2024-09-13] MEDS ORDERED: HYDROmorphone HCL 2 MG/ML VL/or syr IV PRN (19:30)
[2024-09-13] MEDS ORDERED: ONDANSETRON HCL 4 MG/2 ML VIAL IV PRN (19:30)
[2024-09-13] MEDS ORDERED: hydrALAZINE HCL 20 MG/ML VL IV PRN (19:30)
[2024-09-13] MEDS ORDERED: MORPHINE SULFATE INJ 2 MG/ml SYRG IV PRN (19:30)
[2024-09-13] MEDS ORDERED: ACETAMINOPHEN 325 MG TAB PO PRN (19:30)
[2024-09-13] MEDS ORDERED: DOCUSATE SOD 100 MG CAP PO PRN (19:30)
[2024-09-13] MEDS ORDERED: NITROGLYCERIN 0.4 MG SL TAB SL PRN (19:30)
[2024-09-13] MEDS ORDERED: HYDROcodone-ACET 5/325MG TAB PO PRN (19:30)
[2024-09-13] MEDS: METOPROLOL SUCCINATE XL 50 MG TAB PO SCH (21:11)
[2024-09-13] MEDS: DICYCLOMINE HCL 10 MG CAP PO SCH (21:11)
[2024-09-13] MEDS ORDERED: PATIENTS OWN MEDICATION (Omeprazole (Gnp Omeprazole) 20 MG) PO SCH (22:00)
[2024-09-13] MEDS ORDERED: ALBUTEROL SULF HFA 90MCG INH 200DOSE IN SCH (22:00)
[2024-09-13] MEDS: ALBUTEROL MEDNEB 2.5 mg/3ml NEB NEB SCH (22:03)
[2024-09-13] MEDS: ALBUTEROL SULF 2.5 MG/0.5ML(0.5%) NEB SOLN ONE (22:03)
[2024-09-14] VITALS (15 sets, daily range): BP systolic 138–154; BP diastolic 73–85; PULSE 57–85; RESP 12–20; TEMP 96.9–98.6; O2SAT 95–100
[2024-09-14 00:12] LABS: Urine Protein, UAD Negative (Negative)
[2024-09-14 05:35] LABS: Hematocrit 39.6 % (36.0-46.0); Hemoglobin 13.6 g/dL (12.2-16.2); Mean Corpuscular Hemoglobin 30.4 pg (28.0-32.0); Mean Corpuscular Volume 88.8 fL (80.0-100.0); Nucleated Red Blood Cells % 0.1 %
[2024-09-14 05:48] LABS: Alanine Aminotransferase 36 U/L (7-40); Albumin 4.4 g/dL (3.2-4.8); Alkaline Phosphatase 86 U/L (46-116); Anion Gap 10 (5-15); BUN/Creatinine Ratio 16.7 (10.0-20.0); Blood Urea Nitrogen 13 mg/dL (9-23); Calcium 9.7 mg/dL (8.7-10.4); Carbon Dioxide 25 mmol/L (20-31); Chloride 104 mmol/L (98-107); Potassium 3.8 mmol/L (3.5-5.1); Sodium 139 mmol/L (136-145); Total Protein 7.0 g/dL (5.7-8.2)
[2024-09-14 05:49] LABS: Bilirubin, Total 0.5 mg/dL (0.2-1.0)
[2024-09-14 05:50] LABS: Glucose 133 mg/dL (74-106)
[2024-09-14] MEDS: ALBUTEROL SULF 2.5 MG/0.5ML(0.5%) NEB SOLN ONE ×2 (06:39→14:06)
[2024-09-14] MEDS: CHOLECALCIFEROL (VITD3) 1,000UNIT=25mCg TAB PO SCH (10:01)
[2024-09-14] MEDS: ENOXAPARIN SOD 40 MG/0.4 ML SYRINGE SC SCH (10:01)
[2024-09-14] MEDS: PANTOPRAZOLE 40 MG TAB PO SCH (10:02)
[2024-09-14] MEDS: hydroCHLOROthiazide 25 MG TAB PO SCH (10:02)
[2024-09-14] MEDS: LOSARTAN POTASSIUM 50 MG TAB PO SCH (10:03)
[2024-09-14] MEDS ORDERED: LIDOCAINE 1% HCL (LOCAL ANESTH.) INJ 20ML MDV ONE (14:49)
--- NOTE | 2024-09-14 15:55 | DVHPN2 ---
Reviewed: Care Plan, H&P, Labs, Medications, Previous Orders Changes from previous H/P or p: No Changes General: Per HPI Objective Vitals Vital Signs Date Time Temp Pulse Resp B/P (MAP) Pulse Ox O2 Delivery O2 Flow Rate FiO2 09/14/24 14:16 69 18 100 09/14/24 14:09 Room Air 0.0 09/14/24 14:09 21 09/14/24 13:00 97.1 147/75 (99) 97.1 Intake/Output Intake and Output 09/14/24 07:00 Intake Total 900 ml Balance 900 ml Intake Oral 900 ml # Voids 2 General Appearance: Alert, Oriented X3, Cooperative HEENT: Atraumatic Cardiovascular: Regular rate, Normal S1, Normal S2 Neuro: Normal gait, Normal speech Medications Current Medications Medications Dose Ordered Sig/Brenda Route Start Time Stop Time Status Last Admin Dose Admin Aspirin 325 mg ONCE PO 09/13/24 16:45 09/14/24 23:59 Hold Albuterol 108 mcg TID IN 09/13/24 22:00 UNV Dicyclomine HCl 20 mg QHSP PO 09/13/24 22:00 09/13/24 21:11 20 MG Fluticasone Propionate 50 mcg DAILY PRN NA 09/13/24 19:15 Gabapentin 300 mg HS PRN PO 09/13/24 19:15 Aspirin 81 mg DAILY PO 09/14/24 10:00 Hold Cholecalciferol 2,000 unit DAILY PO 09/14/24 10:00 09/14/24 10:01 2,000 UNIT Losartan Potassium 50 mg DAILY PO 09/14/24 10:00 09/14/24 10:03 50 MG Metoprolol Succinate 25 mg HS PO 09/13/24 22:00 09/13/24 21:11 25 MG Patient Own Medication 0.25 mg HS PO 09/14/24 22:00 Atorvastatin Calcium 10 mg HS PO 09/14/24 22:00 Docusate Sodium 100 mg BIDPRN PRN PO 09/13/24 19:30 Acetaminophen 650 mg Q6HP PRN PO 09/13/24 19:30 Acetaminophen/ Hydrocodone Bitart 1 tab Q4HP PRN PO 09/13/24 19:30 Hydromorphone HCl 0.5 mg Q4HP PRN IV 09/13/24 19:30 Ondansetron HCl 4 mg Q4HP PRN IV 09/13/24 19:30 Enoxaparin Sodium 40 mg DAILY SC 09/14/24 10:00 09/14/24 10:01 40 MG Nitroglycerin 0.4 mg Q5MINP PRN SL 09/13/24 19:30 Morphine Sulfate 2 mg Q30M PRN IV 09/13/24 19:30 Hydralazine HCl 5 mg Q6H PRN IV 09/13/24 19:30 Pantoprazole Sodium 40 mg DAILY PO 09/14/24 10:00 09/14/24 10:02 40 MG Hydrochlorothiazide 12.5 mg DAILY PO 09/14/24 10:00 09/14/24 10:02 12.5 MG Albuterol 2.5 mg TID HHN 09/14/24 22:00 Laboratory Results Laboratory Tests 09/14/24 04:16 Chemistry Test 09/14/24 04:16 Albumin 4.4 g/dL (3.2-4.8) Calcium Level 9.7 mg/dL (8.7-10.4) Total Protein 7.0 g/dL (5.7-8.2) LFT Test 09/14/24 04:16 Alanine Aminotransferase (ALT) 36 U/L (7-40) Alkaline Phosphatase 86 U/L (46-116) Aspartate Amino Transferase (AST) 34 U/L (13-40) Total Bilirubin 0.5 mg/dL (0.2-1.0) Urinalysis Test 09/13/24 23:25 Urine Color Light-yellow (Yellow) Urine Clarity Clear (Clear) Urine pH 5.5 (5.0-9.0) Urine Specific [place] 1.045 (1.001-1.035) Urine Protein Negative (Negative) Urine Ketones Negative (Negative) Urine Blood 1+ /uL (Negative) H Urine Nitrite Negative (Negative) Urine Bilirubin Negative (Negative) Urine Urobilinogen Normal mg/dL (Negative) Urine Leukocyte Esterase Negative /uL (Negative) Urine RBC 9 /hpf (0 - 4) Urine Microscopic WBC 1 /HPF (0-5) Urine Squamous Epithelial Cells Few /hpf (<5) Urine Bacteria None seen /hpf (None Seen) Urine Glucose 2+ mg/dL (Normal) H Labs and/or images reviewed: Labs reviewed by me, Image(s) reviewed by me Assessment/Plan Assessment/Plan chest pain elevated trop r/o acs elevated d-dimer, acute pulmonary embolism ruled out flu-like symptoms weakness Plan chest pain 1st trop neg, 2nd trop mild elevated, 3rd trop CTA chest ruled out pulmonary embolism check EKG Check Echo resume home meds cardiac diet ivf Plan discussed with: Patient Date of Service: Sep 14, 2024 Billing Provider: COLBY MORALES DO Common Visit Codes: [id number] INP/OBS CARE(HIGH) Date of Service: Sep 14, 2024 Billing Provider: COLBY MORALES DO Common Visit Codes: [id number] INP/OBS CARE(HIGH) COLBY MORALES DO Sep 14, 2024 15:55
[2024-09-14] MEDS: ROPINIROLE HCL 0.25 MG PO SCH (22:00)
[2024-09-14] MEDS: ALBUTEROL MEDNEB 2.5 mg/3ml NEB HHN SCH (22:26)
[2024-09-14] MEDS: ATORVASTATIN 20 MG TAB PO SCH (23:22)
[2024-09-15] VITALS (11 sets, daily range): BP systolic 138–164; BP diastolic 78–86; PULSE 57–86; RESP 16–19; TEMP 36.6; O2SAT 95–100
[2024-09-15 07:11] LABS: Hematocrit 39.2 % (36.0-46.0); Hemoglobin 13.1 g/dL (12.2-16.2); Mean Corpuscular Hemoglobin 29.7 pg (28.0-32.0); Mean Corpuscular Volume 88.8 fL (80.0-100.0); Nucleated Red Blood Cells % 0.0 %
[2024-09-15 07:33] LABS: Alanine Aminotransferase 25 U/L (7-40); Albumin 4.2 g/dL (3.2-4.8); Alkaline Phosphatase 75 U/L (46-116); Calcium 10.3 mg/dL (8.7-10.4); Carbon Dioxide 27 mmol/L (20-31); Chloride 105 mmol/L (98-107)
[2024-09-15 07:34] LABS: Anion Gap 10 (5-15); BUN/Creatinine Ratio 22.7 (10.0-20.0); Bilirubin, Total 0.5 mg/dL (0.2-1.0); Blood Urea Nitrogen 20 mg/dL (9-23); Glucose 81 mg/dL (74-106); Sodium 142 mmol/L (136-145); Total Protein 6.7 g/dL (5.7-8.2)
[2024-09-15 07:35] LABS: Potassium 3.3 mmol/L (3.5-5.1)
--- NOTE | 2024-09-15 09:16 | DVHSR ---
APPROVED REPORT EXAM: Two-dimensional and M-mode echocardiogram with Doppler and color Doppler. Blood Pressure: 154/85 mmHg INDICATION Chest Pain elevated troponin rule out RISK FACTORS Height: 5'1, Weight: 121 DIMENSIONS LVDd3.1 (3.8-5.7cm)LA (2D)3.8 (1.9-4.0cm)Aortic Root2.7 (2.0-3.7cm) LVDs2.0 (2.5-4.0cm)LA (MM) (1.9-4.0cm)Aortic Cusp Exc1.2 (1.5-2.0cm) EF (%) 65.0 (55-70%)Rt. Atrium2.9 (1.9-4.0cm)Asc. Aorta cm IVSd1.0 (0.7-1.1cm)RV (D)2.9 (1.8-2.4cm) PWd0.7 (0.7-1.1cm) Mitral Valve MitralMitral Stenosis E wave0.91m/sMV Mean GR.mmHg A wave0.98m/sMV Peak GR.89mmHg E/A ratio0.92D MVAcm2 DECEL [id number] 1/2 [place] Aortic Valve Aortic ValveAortic Stenosis V10.95m/Sourav Mean GR.4mmHg V21.25m/Sourav Peak GR.6mmHg LVOT Diameter1.5 (1.8-2.4cm)Doppler AVA1.34cm2 Pulmonic Valve V20.92m/s Tricuspid Valve TR Velocity2.42m/s [id number] Other Information Technically limited study due to patient position.body habitus. Conclusion LV EF IS 65% AND IS NORMAL NORMAL VALVES NO EFFUSION NORMAL RV FUNCTION AND SIZE
[2024-09-15] MEDS ORDERED: PANT40T PO (12:00)
--- NOTE | 2024-09-15 12:05 | DVHDS2 ---
Discharge Summary Date of Admission Sep 13, 2024 at 19:25 Date of Discharge: Sep 15, 2024 Labs/Diagnostic Data: Laboratory Results Test 09/15/24 06:14 09/13/24 23:25 09/13/24 17:59 09/13/24 15:08 White Blood Count 12.1 10^3/uL (4.4-10.8) Red Blood Count 4.41 10^6/uL (4.0-5.20) Hemoglobin 13.1 g/dL (12.2-16.2) Hematocrit 39.2 % (36.0-46.0) Mean Corpuscular Volume 88.8 fL (80.0-100.0) Mean Corpuscular Hemoglobin 29.7 pg (28.0-32.0) Mean Corpuscular Hemoglobin Concent 33.5 g/dL (32.0-36.0) Red Cell Distribution Width 12.7 % (11.8-14.3) Platelet Count 280 10^3/uL (140-450) Mean Platelet Volume 6.7 fL (6.9-10.8) Neutrophils (%) (Auto) 64.8 % (37.0-80.0) Lymphocytes (%) (Auto) 30.3 % (10.0-50.0) Monocytes (%) (Auto) 4.4 % (0.0-12.0) Eosinophils (%) (Auto) 0.3 % (0.0-7.0) Basophils (%) (Auto) 0.2 % (0.0-2.0) Neutrophils # (Auto) 7.9 10 ^3/uL (1.6-8.6) Lymphocytes # (Auto) 3.7 10 ^3/uL (0.4-5.4) Monocytes # (Auto) 0.5 10 ^3/uL (0-1.3) Eosinophils # (Auto) 0 10 ^3/uL (0-0.8) Basophils # (Auto) 0 10 ^3/uL (0-0.2) Nucleated Red Blood Cells 0.0 % Sodium Level 142 mmol/L (136-145) Potassium Level 3.3 mmol/L (3.5-5.1) Chloride Level 105 mmol/L (98-107) Carbon Dioxide Level 27 mmol/L (20-31) Anion Gap 10 (5-15) Blood Urea Nitrogen 20 mg/dL (9-23) Creatinine 0.88 mg/dL (0.550-1.02) Glomerular Filtration Rate Calc 67 mL/min (>90) BUN/Creatinine Ratio 22.7 (10.0-20.0) Serum Glucose 81 mg/dL (74-106) Calcium Level 10.3 mg/dL (8.7-10.4) Total Bilirubin 0.5 mg/dL (0.2-1.0) Aspartate Amino Transferase (AST) 25 U/L (13-40) Alanine Aminotransferase (ALT) 25 U/L (7-40) Alkaline Phosphatase 75 U/L (46-116) Total Protein 6.7 g/dL (5.7-8.2) Albumin 4.2 g/dL (3.2-4.8) Urine Color Light-yellow (Yellow) Urine Clarity Clear (Clear) Urine pH 5.5 (5.0-9.0) Urine Specific [place] 1.045 (1.001-1.035) Urine Protein Negative (Negative) Urine Ketones Negative (Negative) Urine Blood 1+ /uL (Negative) Urine Nitrite Negative (Negative) Urine Bilirubin Negative (Negative) Urine Urobilinogen Normal mg/dL (Negative) Urine Leukocyte Esterase Negative /uL (Negative) Urine RBC 9 /hpf (0 - 4) Urine Microscopic WBC 1 /HPF (0-5) Urine Squamous Epithelial Cells Few /hpf (<5) Urine Bacteria None seen /hpf (None Seen) Urine Glucose 2+ mg/dL (Normal) Troponin I High Sensitivity 34 ng/L (</=34) D-Dimer, Quantitative 1.87 mg/L FEU (0.0-0.49) Lactic Acid Level 1.3 mmol/L (0.4-2.0) B-Type Natriuretic Peptide 141.79 pg/mL (0-100) Other Laboratory Tests 09/15/24 06:14 Brief Hx & Hospital Course: chest pain elevated trop r/o acs elevated d-dimer, acute pulmonary embolism ruled out flu-like symptoms weakness Plan chest pain 1st trop neg, 2nd trop mild elevated, 3rd trop CTA chest ruled out pulmonary embolism check EKG Check Echo resume home meds cardiac diet ivf ECHO done with normal LVEF discharged to home Condition at Discharge: Fair Final Diagnosis/Problems List see above Discharge Disposition: Home Discharge Instruct/Medications Diet: Cardiac 2g Na,low cholest Activity: No Restrictions, As Tolerated Scheduled Albuterol Sulfate (Albuterol Sulfate Hfa), 108 MCG IN TID Aspirin (Aspirin Low Dose), 81 MG PO DAILY, (Reported) Azithromycin (Zithromax Tablet), 250 MG PO DAILY Cholecalciferol (D3 2000), 2,000 UNIT PO DAILY, (Reported) Dicyclomine Hcl (Bentyl Capsule), 2 TAB PO QHSP, (Reported) Diphenhydramine Hcl (Unisom Sleepmelts), 25 MG PO HSPRN, (Reported) Losartan Potassium & Hydrochlo (Hyzaar), 1 TAB PO DAILY, (Reported) Metoprolol Succinate (Metoprolol Succinate Er), 25 MG PO HS, (Reported) Omeprazole (Gnp Omeprazole), 20 MG PO BID, (Reported) Pantoprazole Sodium Sesquihydr (Pantoprazole Sodium), 40 MG PO DAILY Potassium Chloride (Potassium Chloride Cr), 10 MEQ PO DAILY, (Reported) Promethazine-Dm (Promethazine Dm 6.25-15 mg/5Ml), 5 ML PO TID Ropinirole Hydrochloride (Ropinirole Hcl), 0.25 MG PO QPM, (Reported) Simvastatin (Simvastatin), 20 MG PO DAILY, (Reported) Scheduled PRN Fluticasone Propionate (Flonase [place]), 2 SPRAY NA DAILY PRN for prn, (Reported) Gabapentin (Gabapentin), 300 MG PO QPM PRN for qpm, (Reported) Miscellaneous Medications Diclofenac Sodium (Topical) (Aspercreme Arthritis Pain), 1 % EX, (Reported) Lidocaine-Transparent Dressing (Lidocaine), 4 % EX, (Reported) Discharge Statement: "Patient was advised to return to the ER or call 911 if any headaches, dizziness, shortness of breath, chest pain, abdominal pain, bleeding, fevers, or worsening of medical condition. Patient was counseled about treatment plan, medications, possible side effects, patientverbalized understanding. All questions were answered to the best of my ability. This discharge took greater then 30 minutes in planning, reviewing documentation, counseling the patient, and discussing with other team members." ASSESSMENT ASSESSMENT Assessment Date of Service: Sep 15, 2024 Billing Provider: COLBY MORALES DO Common Visit Codes: [id number] DISCH DAY >30min COLBY MORALES DO Sep 15, 2024 12:05
[2024-09-15] MEDS ORDERED: AZIT-43 PO (13:34)
[2024-09-15] MEDS ORDERED: ALBUTEROL SULF 2.5 MG/0.5ML(0.5%) NEB SOLN ONE (13:59)
== END 2024-09-15 15:20 | disposition home or self-care (01) | DRG 311 ==
LOC: ER 13:46 → OVERFLOW 19:25 → WEST WING 20:42
PROVIDERS: ADMIT Internal Medicine; ATTEND Internal Medicine
DX: I24.9 Acute ischemic heart disease, unspecified (principal); J45.901 Unspecified asthma with (acute) exacerbation; I10 Essential (primary) hypertension; E78.5 Hyperlipidemia, unspecified; E86.0 Dehydration; G62.9 Polyneuropathy, unspecified; G89.29 Other chronic pain; Z90.710 Acquired absence of both cervix and uterus; Z98.51 Tubal ligation status; Z79.899 Other long term (current) drug therapy; Z88.6 Allergy status to analgesic agent; Z88.8 Allergy status to other drugs, medicaments and biological substances; Z79.82 Long term (current) use of aspirin
CPT/HCPCS: 36415; 71045; 71275; 80053; 81001; 83605; 83880; 84484; 85025; 85379; 93306; 94060; 94640; 94729; 96374; 97163; 99291; G0378; J2003

== ENCOUNTER 2024-10-23 12:06 | Emergency (ER) | payer OTHER ==
[~2024-10-23] VITALS: Ht 154.9 cm; Wt 55.8 kg
[~2024-10-23 12:06] MED LIST changes: +AZIT-43 PO; +PANT40T PO
[2024-10-23 12:11] VITALS: TEMP 98.4
--- NOTE | 2024-10-23 15:13 | ED.PDOC ---
Musculoskeletal HPI Comments 78 year old female presents to the ED with a chief complaint of fall injury onset today around 11:30. Patient states she was walking on her patio when she fell, hit LT side head, paced her hands to break the fall. Is currently experiencing bilateral wrist pain, Lt wrist pain radiates to her arm. Patient is concerned due to recent carpal tunnel surgery 09/05/24. PMHx asthma, HLD, HTN, Neuropathy. Denies LOC, dizziness, blurry vision, numbness/tingling, nausea, vomiting, abdominal pain, chest pain, shortness of breath, dysuria, hematuria, fever, chills.No other symptoms or modifying factors present at this time. Chief Complaint: Fall Injury Time Seen by MD: 15:10 Primary Care Provider: SERA Reviewed Notes: Medications, Allergies Allergies: Coded Allergies: Amitriptyline (Unverified Allergy, Unknown, 01/16/15) Aspirin (Unverified Allergy, Unknown, 01/16/15) Meloxicam (Unverified Allergy, Unknown, 01/16/15) Sulfamethoxazole w/Trimethoprim (Unverified Allergy, Unknown, 01/16/15) Venlafaxine (Unverified Allergy, Unknown, 01/16/15) Home Meds Active Scripts Azithromycin (Azithromycin) 250 Mg Tab, 250 MG PO DAILY MDD 500 for 5 Days, #6 TAB 0 Refills 2 TABLETS ORALLY ON DAY ONE, THEN 1 TABLET ORALLY DAILY FOR 4 DAYS Prov:COLBY MORALES DO 09/15/24 Pantoprazole Sodium Sesquihydr (Pantoprazole Sodium) 40 Mg Tab, 40 MG PO DAILY for 30 Days, #30 TAB 3 Refills Prov:COLBY MORALES DO 09/15/24 Promethazine-Dm (Promethazine Dm 6.25-15 mg/5Ml) 1 Yadira Yadira, 5 ML PO TID, #150 ML Prov:PAULINE OQUENDO 09/08/24 Albuterol Sulfate (Albuterol Sulfate Hfa) 108 Mcg/Act Aer, 108 MCG IN TID, #120 AER Prov:PAULINE OQUENDO 09/08/24 Azithromycin (ZITHROMAX TABLET) 250 Mg Tb, 250 MG PO DAILY, #6 TAB Prov:PAULINE OQUENDO 09/08/24 Reported Medications Diphenhydramine Hcl (Unisom Sleepmelts) 25 Mg Tab, 25 MG PO HSPRN, TAB 08/31/24 Cholecalciferol (D3 2000) 2,000 Unit Tab, 2000 UNIT PO DAILY, TAB 08/31/24 Aspirin (Aspirin Low Dose) 81 Mg Chw, 81 MG PO DAILY, TAB.CHEW 08/31/24 Lidocaine-Transparent Dressing (Lidocaine) 4 % Kit, 4 % EX, KIT 08/31/24 Diclofenac Sodium (Topical) (Aspercreme Arthritis Pain) 1 % Gel, 1 % EX, GEL 08/31/24 Dicyclomine Hcl (BENTYL CAPSULE) 10 Mg Cp, 2 TAB PO QHSP, CAP 08/31/24 Gabapentin (Gabapentin) 300 Mg Cap, 300 MG PO QPM PRN for qpm, CAP 04/09/22 Ropinirole Hydrochloride (Ropinirole Hcl) 0.25 Mg Tab, 0.25 MG PO QPM, #2 TAB 04/09/22 Potassium Chloride (POTASSIUM CHLORIDE CR) 10 Meq Tb, 10 MEQ PO DAILY, TAB 04/09/22 Omeprazole (Gnp Omeprazole) 20 Mg Tab, 20 MG PO BID, TAB 04/09/22 Losartan Potassium & Hydrochlo (Hyzaar) 1 Tab Tab, 1 TAB PO DAILY, TAB 04/09/22 Fluticasone Propionate (FLONASE SPRAY) 50 Mcg Sp, 2 SPRAY NA DAILY PRN for prn, #16 GRAMS 01/16/15 Simvastatin (Simvastatin) 20 Mg Tab, 20 MG PO DAILY for 30 Days 01/16/15 Metoprolol Succinate (Metoprolol Succinate Er) 25 Mg Tab, 25 MG PO HS for 30 Days, MG 01/16/15 Information Source: Patient Mode of Arrival: Ambulatory Location: Bilateral Extremity Location: Wrist Timing: Hours Prehospital treatment: None Severity: Moderate Able to Move Extremity: Yes Pain: Moderate Mechanism: Spontaneous Circumstances: Fall Onset of Symptoms: After Trauma Symptoms: Pain DVT Risk Factors: NONE Associated signs and symptoms: Wrist pain Past Medical History PAST MEDICAL HISTORY: Asthma, High Lipids, HTN Surgical History (Other): carpul tunnel CLOTHES IRONER History: No Pertinent CLOTHES IRONER History Family History Family History: Reviewed,noncontributory to illness, No family hx of Cancer, No family hx of DM, No family hx of Heart sania, No family hx of HTN, No family hx ofKidney sania, No family hx of Liver sania, No family hx of Lung sania, No family hx of Stroke Social History Smoker: Non-Smoker Alcohol: Denies ETOH Use Drugs: Denies Drug Use Lives In: Home Constitutional: denies: chills, diaphoresis, fatigue, fever, malaise, sweats, weakness, others EENTM: denies: blurred vision, double vision, ear bleeding, ear discharge, ear drainage, ear pain, ear ringing, eye pain, eye redness, hearing loss, mouth pain, mouth swelling, nasal discharge, nose bleeding, nose congestion, nose pain, photophobia, tearing, throat pain, throat swelling, voice changes, others Respiratory: denies: cough, hemoptysis, orthopnea, SOB at rest, shortness of breath, SOB with excertion, stridor, wheezing, others Cardiovascular: denies: chest pain, dizzy spells, diaphoresis, Dyspnea on exertion, edema, irregular heart beat, left arm pain, lightheadedness, palpitations, PND, syncope, others Gastrointestinal: denies: abdomen distended, abdominal pain, blood streaked bowels, constipated, diarrhea, dysphagia, difficulty swallowing, hematemesis, melena, nausea, poor appetite, poor fluid intake, rectal bleeding, rectal pain, vomiting, others Genitourinary: denies: abnormal vagina bleeding, burning, dyspareunia, dysuria, flank pain, frequency, hematuria, incontinence, pain, , vagina discharge, urgency, others Neurological: denies: dizziness, fainting, headache, left sided numbness, left sided weakness, numbness, paresthesia, pre-existing deficit, right sided numbness, right sided weakness, seizure, speech problems, tingling, tremors, weakness, others Musculoskeletal: reports: others (bilateral wrist pain); denies: back pain, gout, joint pain, joint swelling, muscle pain, muscle stiffness, neck pain Integumetry: denies: bruises, change in color, change in hair/nails, dryness, laceration, lesions, lumps, rash, wounds, others Allergic/Immunocompromised: denies: Difficulty Healing, Frequent Infections, Hives, Itching, others Hematologic/Lymphatic: denies: anemia, blood clots, easy bleeding, easy bruising, swollen glands, others Endocrine: denies: excessive hunger, excessive sweating, excessive thirst, excessive urination, flushing, intolerance to cold, intolerance to heat, unexplained weight gain, unexplained weight loss, others Psychiatric: denies: anxiety, bipolar disorder, depression, hopeless, panic disorder, schizophrenia, sleepless, suicidal, others All Other Systems: Reviewed and Negative Physical Exam General Appearance: Mild Distress, Normal HEENT: Normal ENT Inspection, PERRL/EOMI, Pharynx Normal, TMs Normal, Other (Facial contusion on the left side) Neck: Full Range of Motion, Non-Tender, Normal, Normal Inspection Respiratory: Chest Non-Tender, Lungs Clear, No Accessory Muscle Use, No Respiratory Distress, Normal Breath Sounds Cardiovascular: No Edema, No JVD, No Murmur, No Gallop, Normal Peripheral Pulses, Regular Rate/Rhythm Breast Exam: Deferred Gastrointestinal: No Organomegaly, Non Tender, No Pulsatile Mass, Normal Bowel Sounds, Soft Genitalia: Deferred Pelvic: Deferred Rectal: Deferred Extremities: No calf tenderness, Normal capillary refill, Normal inspection, Normal range of motion, Non-tender, No pedal edema Musculoskeletal : Apperance: Normal Neurologic: Alert, 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 Was a procedure done?: No Differential Diagnosis EXT Differential Diagnosis: Contusion X-Ray, Labs, Meds, VS Vital Signs Date Time Temp Pulse Resp B/P (MAP) Pulse Ox O2 Delivery O2 Flow Rate FiO2 10/23/24 12:11 98.4 95 19 162/92 97 98.4 X-Ray, Labs, Meds, VS Comment This patient came to the [facility] complaining of facial pain she fell and hit her left side of her face Her physical examination is fine her ears are clear Patient will be discharged home to follow up with your PCP patient fell because of the dizziness Time of 1ST Reevaluation: 15:40 Reevaluation 1ST: Unchanged Patient Education/Counseling: Diagnosis, Treatment, Prognosis Family Education/Counseling: No Family Present Departure 1 Departure Time of Disposition: 15:18 Impression: Primary Impression: Positional vertigo of left ear Additional Impression: Facial contusion Qualified Codes: S00.83XA - Contusion of other part of head, initial encounter Disposition: HOME / SELF CARE / HOMELESS Condition: Fair Additional Instructions: Apply local heat on face e-Prescriptions Hydrocodone-Acetaminophen (Hydrocodone Bitartrate/AC 5-325 mg) 1 Tab Tab 1 TAB PO BID for 5 Days, #10 TAB Prov: TINA WALKER MD 10/23/24 Discharged With: Self Critical Care Note Critical Care Time?: No Stability Stability form required: No Heart Score Heart Score: Heart Score Response (Comments) Value History N/A 0 EKG N/A 0 Age >65 2 Risk Factors 1 or 2 risk factors 1 Troponin N/A 0 Total 3 I personally scribed for TINA WALKER MD ([email or web address]) on 10/23/24 at 15:13. Electronically submitted by Kayleen Diaz ([email or web address]). TINA WALKER MD Oct 23, 2024 15:13
[2024-10-23 15:20] VITALS: BP 150/86; PULSE 71; RESP 18; O2SAT 97
[2024-10-23] MEDS ORDERED: HYDR-4902 PO (15:20)
== END 2024-10-23 15:26 | disposition home or self-care (01) ==
LOC: ER 12:06
DX: S00.83XA Contusion of other part of head, initial encounter (principal); M25.531 Pain in right wrist; M25.532 Pain in left wrist; H81.12 Benign paroxysmal vertigo, left ear; I10 Essential (primary) hypertension; E78.5 Hyperlipidemia, unspecified; J45.909 Unspecified asthma, uncomplicated; Z79.82 Long term (current) use of aspirin; Z79.899 Other long term (current) drug therapy; Z88.1 Allergy status to other antibiotic agents; Z88.2 Allergy status to sulfonamides; Z88.6 Allergy status to analgesic agent; Z88.8 Allergy status to other drugs, medicaments and biological substances; W18.39XA Other fall on same level, initial encounter; Y93.01 Activity, walking, marching and hiking; Y92.89 Other specified places as the place of occurrence of the external cause; Y99.8 Other external cause status

== ENCOUNTER 2024-11-07 07:49 | Emergency (ER) | payer OTHER ==
[~2024-11-07] VITALS: Ht 154.9 cm; Wt 54.4 kg
[~2024-11-07 07:49] MED LIST changes: +HYDR-4902 PO
[2024-11-07 07:52] VITALS: TEMP 98.3
--- NOTE | 2024-11-07 08:46 | ED.PDOC ---
History of Present Illness HPI Comments 79-year-old female who presents to the ED with a chief of headache s/p fall onset 10/23/2024. Patient is currently experiencing headache s/p fall on 10/23/24, was seen in this ED initially after fall, discharged with pain medication, no improvement of symptoms. PMHx HTN HLD, asthma. Denies chest pain, shortness of breath, numbness/tingling, weakness, fever, chills, nausea, vomiting, blurred vision, dizziness. No other symptoms or modifying factors present at this time. Chief Complaint: Upper Extremity Time Seen by MD: 08:35 Primary Care Provider: SERA Reviewed Notes: Medications, Allergies Allergies: Coded Allergies: Amitriptyline (Unverified Allergy, Unknown, 01/16/15) Aspirin (Unverified Allergy, Unknown, 01/16/15) Meloxicam (Unverified Allergy, Unknown, 01/16/15) Sulfamethoxazole w/Trimethoprim (Unverified Allergy, Unknown, 01/16/15) Venlafaxine (Unverified Allergy, Unknown, 01/16/15) Home Meds Active Scripts Hydrocodone-Acetaminophen (Hydrocodone Bitartrate/AC 5-325 mg) 1 Tab Tab, 1 TAB PO BID for 5 Days, #10 TAB Prov:TINA WALKER MD 10/23/24 Azithromycin (Azithromycin) 250 Mg Tab, 250 MG PO DAILY MDD 500 for 5 Days, #6 TAB 0 Refills 2 TABLETS ORALLY ON DAY ONE, THEN 1 TABLET ORALLY DAILY FOR 4 DAYS Prov:COLBY MORALES DO 09/15/24 Pantoprazole Sodium Sesquihydr (Pantoprazole Sodium) 40 Mg Tab, 40 MG PO DAILY for 30 Days, #30 TAB 3 Refills Prov:COLBY MORALES DO 09/15/24 Promethazine-Dm (Promethazine Dm 6.25-15 mg/5Ml) 1 Yadira Yadira, 5 ML PO TID, #150 ML Prov:PAULINE OQUENDO 09/08/24 Albuterol Sulfate (Albuterol Sulfate Hfa) 108 Mcg/Act Aer, 108 MCG IN TID, #120 AER Prov:PAULINE OQUENDO 09/08/24 Azithromycin (ZITHROMAX TABLET) 250 Mg Tb, 250 MG PO DAILY, #6 TAB Prov:PAULINE OQUENDO PA 09/08/24 Reported Medications Diphenhydramine Hcl (Unisom Sleepmelts) 25 Mg Tab, 25 MG PO HSPRN, TAB 08/31/24 Cholecalciferol (D3 2000) 2,000 Unit Tab, 2000 UNIT PO DAILY, TAB 08/31/24 Aspirin (Aspirin Low Dose) 81 Mg Chw, 81 MG PO DAILY, TAB.CHEW 08/31/24 Lidocaine-Transparent Dressing (Lidocaine) 4 % Kit, 4 % EX, KIT 08/31/24 Diclofenac Sodium (Topical) (Aspercreme Arthritis Pain) 1 % Gel, 1 % EX, GEL 08/31/24 Dicyclomine Hcl (BENTYL CAPSULE) 10 Mg Cp, 2 TAB PO QHSP, CAP 08/31/24 Gabapentin (Gabapentin) 300 Mg Cap, 300 MG PO QPM PRN for qpm, CAP 04/09/22 Ropinirole Hydrochloride (Ropinirole Hcl) 0.25 Mg Tab, 0.25 MG PO QPM, #2 TAB 04/09/22 Potassium Chloride (POTASSIUM CHLORIDE CR) 10 Meq Tb, 10 MEQ PO DAILY, TAB 04/09/22 Omeprazole (Gnp Omeprazole) 20 Mg Tab, 20 MG PO BID, TAB 04/09/22 Losartan Potassium & Hydrochlo (Hyzaar) 1 Tab Tab, 1 TAB PO DAILY, TAB 04/09/22 Fluticasone Propionate (FLONASE SPRAY) 50 Mcg Sp, 2 SPRAY NA DAILY PRN for prn, #16 GRAMS 01/16/15 Simvastatin (Simvastatin) 20 Mg Tab, 20 MG PO DAILY for 30 Days 01/16/15 Metoprolol Succinate (Metoprolol Succinate Er) 25 Mg Tab, 25 MG PO HS for 30 Days, MG 01/16/15 Information Source: Patient Mode of Arrival: Ambulatory Severity: Moderate Timing: Weeks Duration: Since onset Prehospital treatment: None Past Medical History PAST MEDICAL HISTORY: Asthma, High Lipids, HTN Surgical History: Denies all surgeries LEAD SOLUTIONS ARCHITECT History: No Pertinent LEAD SOLUTIONS ARCHITECT History Family History Family History: Reviewed,noncontributory to illness, No family hx of Cancer, No family hx of DM, No family hx of Heart sania, No family hx of HTN, No family hx ofKidney sania, No family hx of Liver sania, No family hx of Lung sania, No family hx of Stroke Social History Smoker: Non-Smoker Alcohol: Denies ETOH Use Drugs: Denies Drug Use Lives In: Home Constitutional: denies: chills, diaphoresis, fatigue, fever, malaise, sweats, weakness, others EENTM: denies: blurred vision, double vision, ear bleeding, ear discharge, ear drainage, ear pain, ear ringing, eye pain, eye redness, hearing loss, mouth pain, mouth swelling, nasal discharge, nose bleeding, nose congestion, nose pain, photophobia, tearing, throat pain, throat swelling, voice changes, others Respiratory: denies: cough, hemoptysis, orthopnea, SOB at rest, shortness of breath, SOB with excertion, stridor, wheezing, others Cardiovascular: denies: chest pain, dizzy spells, diaphoresis, Dyspnea on exertion, edema, irregular heart beat, left arm pain, lightheadedness, palpitations, PND, syncope, others Gastrointestinal: denies: abdomen distended, abdominal pain, blood streaked bowels, constipated, diarrhea, dysphagia, difficulty swallowing, hematemesis, melena, nausea, poor appetite, poor fluid intake, rectal bleeding, rectal pain, vomiting, others Genitourinary: denies: abnormal vagina bleeding, burning, dyspareunia, dysuria, flank pain, frequency, hematuria, incontinence, pain, , vagina discha rge, urgency, others Neurological: reports: headache; denies: dizziness, fainting, left sided numbness, left sided weakness, numbness, paresthesia, pre-existing deficit, right sided numbness, right sided weakness, seizure, speech problems, tingling, tremors, weakness, others Musculoskeletal: denies: back pain, gout, joint pain, joint swelling, muscle pain, muscle stiffness, neck pain, others Integumetry: denies: bruises, change in color, change in hair/nails, dryness, laceration, lesions, lumps, rash, wounds, others Allergic/Immunocompromised: denies: Difficulty Healing, Frequent Infections, Hives, Itching, others Hematologic/Lymphatic: denies: anemia, blood clots, easy bleeding, easy bruising, swollen glands, others Endocrine: denies: excessive hunger, excessive sweating, excessive thirst, excessive urination, flushing, intolerance to cold, intolerance to heat, unexplained weight gain, unexplained weight loss, others Psychiatric: denies: anxiety, bipolar disorder, depression, hopeless, panic disorder, schizophrenia, sleepless, suicidal, others All Other Systems: Reviewed and Negative Physical Exam General Appearance: Moderate Distress, Normal HEENT: Normal ENT Inspection, Pharynx Normal, TMs Normal Neck: Full Range of Motion, Non-Tender, Normal, Normal Inspection Respiratory: Chest Non-Tender, Lungs Clear, No Accessory Muscle Use, No Respiratory Distress, Normal Breath Sounds Cardiovascular: No Edema, No JVD, No Murmur, No Gallop, Normal Peripheral Pulses, Regular Rate/Rhythm Breast Exam: Deferred Gastrointestinal: No Organomegaly, Non Tender, No Pulsatile Mass, Normal Bowel Sounds, Soft Genitalia: Deferred Pelvic: Deferred Rectal: Deferred Extremities: No calf tenderness, Normal capillary refill, Normal inspection, Normal range of motion, Non-tender, No pedal edema Musculoskeletal : Apperance: Normal Neurologic: Alert, 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 Was a procedure done?: No Differential Dx Considerations may include: Anemia Electrolyte imbalance X-Ray, Labs, Meds, VS Vital Signs Date Time Temp Pulse Resp B/P (MAP) Pulse Ox O2 Delivery O2 Flow Rate FiO2 11/07/24 07:52 98.3 98 14 1/83 97 98.3 Patient alert. Came in because of generalized symptoms. No recent fall. Vitals stable. She did follow up week ago. Ambulating. No neurological deficit. CT of the head reviewed does not show any acute process. No leg swelling. No chest pain. No acute process. Reviewed her previous visit. Explained to the patient. Was told to follow up with her primary care physician. Was told to come back if there is any problem. [address] [address] Ph: [phone] DIAGNOSTIC IMAGING Diagnostic Imaging Report : [id number] Signed PATIENT: TIM RESENDEZ ACCT: [id number] UNIT: [id number] : 1945 LOC: ER ROOM / BED: / AGE / SEX: 79 / F ADM STATUS: REG ER SERVICE ORDERING PHYSICIAN: YO SIFUENTES MD PROCEDURE(s): HWOCT - HEAD WITHOUT CONTRAST REASON: fall ORDER NUMBER(s): [id number], ACCESSION NUMBER(s): [id number] CLINICAL INFORMATION: 79 years old, Female; fall injury. TECHNIQUE: Axial imaging was obtained through the brain without contrast. Coronal and sagittal reformatted images were obtained, reviewed, and stored. Images were reviewed in brain and bone windows. All CT scans at this medical facility are performed using dose modulation techniques as appropriate to a performed exam including the following: Automated exposure control was utilized; adjustment of the MA and/or KV according to patient size; and use of iterative reconstruction technique. CTDIvol = 58.91 mGy DLP = 1042.97 mGy-cm COMPARISON: None FINDINGS: There is no acute intracranial hemorrhage. No mass effect or midline shift. The ventricles and sulci are within normal limits in size for age. Basal cisterns are patent. The calvarium is unremarkable. Mild mucosal thickening of the paranasal sinuses. Mastoid air cells are clear. IMPRESSION: No CT evidence of acute intracranial abnormality. Workstation: [id number] DICTATED BY: ARNOL LOERA DO DICTATED DATE/TIME: 11/07/24916 SIGNED BY: ARNOL LOERA DO SIGNED DATE/TIME: 11/07/24916 CC: Time of 1ST Reevaluation: 09:05 Reevaluation 1ST: Unchanged Patient Education/Counseling: Diagnosis, Treatment, Prognosis Family Education/Counseling: No Family Present SEPSIS Sepsis Screen Date sepsis recognized/suspect: Nov 07, 2024 Time Sepsis recognized/suspect: 0758 Recent Procedure: No On Antibiotic Therapy: No Respiratory Rate >20: No Heart Rate >90: No Temp<36 C (96.8 F) or >38.3 C: No SBP <90 or MAP <65 mmHG: No New Acute Mental Status Change: No Is the patient on CPAP, BIPAP,: No Physician Orders Head Without Contrast (11/07/24 08:42) Urinalysis (11/07/24 08:42) Vital Signs Date Time Temp Pulse Resp B/P (MAP) Pulse Ox O2 Delivery O2 Flow Rate FiO2 11/07/24 07:52 98.3 98 14 1/83 97 98.3 Departure 1 Departure Time of Disposition: 09:17 Impression: Primary Impression: Autonomic disorder Disposition: ADMITTED INPATIENT Admit to: Med Surg Condition: Guarded Critical Care Note Critical Care Time?: No Stability Stability form required: No Heart Score Heart Score: Heart Score Response (Comments) Value History N/A 0 EKG N/A 0 Age N/A 0 Risk Factors N/A 0 Troponin N/A 0 Total 0 I personally scribed for YO SIFUENTES MD ([email or web address]) on 11/07/24 at 08:46. Electronically submitted by Kayleen Diaz ([email or web address]). I personally scribed for YO SIFUENTES MD ([email or web address]) on 11/07/24 at 09:27. Electronically submitted by Kayleen Diaz ([email or web address]). YO SIFUENTES MD Nov 07, 2024 08:46
--- NOTE | 2024-11-07 09:20 | DVH ---
CLINICAL INFORMATION: 79 years old, Female; fall injury. TECHNIQUE: Axial imaging was obtained through the brain without contrast. Coronal and sagittal reform atted images were obtained, reviewed, and stored. Images were reviewed in brain and bone windows. Al l CT scans at this medical facility are performed using dose modulation techniques as appropriate to a performed exam including the following: Automated exposure control was utilized; adjustment of the MA and/or KV according to patient size; and use of iterative reconstruction technique. CTDIvol = 58.9 1 mGy DLP = 1042.97 mGy-cm COMPARISON: None FINDINGS: There is no acute intracranial hemorrhage. No mass effect or midline shift. The ventricles and sulci are within normal limits in size for age. Basal cisterns are patent. The calvarium is unre markable. Mild mucosal thickening of the paranasal sinuses. Mastoid air cells are clear. IMPRESSION: No CT evidence of acute intracranial abnormality. Workstation: [id number]
[2024-11-07 11:04] VITALS: BP 177/92; PULSE 83; RESP 18; O2SAT 98
== END 2024-11-07 11:10 | disposition home or self-care (01) ==
LOC: ER 07:49
DX: G90.9 Disorder of the autonomic nervous system, unspecified (principal); E78.5 Hyperlipidemia, unspecified; I10 Essential (primary) hypertension; J45.909 Unspecified asthma, uncomplicated; Z79.82 Long term (current) use of aspirin; Z79.891 Long term (current) use of opiate analgesic; Z79.899 Other long term (current) drug therapy; Z88.1 Allergy status to other antibiotic agents; Z88.2 Allergy status to sulfonamides; Z88.6 Allergy status to analgesic agent; Z88.8 Allergy status to other drugs, medicaments and biological substances
CPT/HCPCS: 70450